=== PATIENT | male | born 1960 | race Caucasian/White ===

== ENCOUNTER → 2021-09-01 | Outpatient (CLI) | payer BC, SELFPAY ==
--- NOTE | 2021-09-01 11:26 | US_ITS ---
EXAM: US SOFT TISSUES HEAD AND NECK, THYROID CLINICAL INDICATION: THYROMEGALY TECHNIQUE: Greyscale and color doppler imaging was performed of the thyroid gland. This report was created using [employer] report generation technology. COMPARISON: None. FINDINGS: LEFT THYROID LOBE: The left lobe measures 5.2 x 1.9 x 2.1 cm and is diffusely heterogeneous. Left lobe nodule 1: In the midpole region of the left lobe of the thyroid there is a solid 5 x 4 x 2 mm nodule that is hypoechoic, taller than wide, smoothly marginated with no echogenic foci. TI-RADS points: 4. TI-RADS category: TR4. This nodule is moderately suspicious but no FNA or follow-up is necessary given the small size of this nodule. RIGHT THYROID LOBE: The right lobe measures 5.5 x 2.1 x 1.6 cm and is diffusely heterogeneous. Right lobe Nodule 1: In the lower pole of the right lobe of the thyroid there is a solid 4 x 4 x 3 mm nodule that is hypoechoic, taller than wide, smoothly marginated without echogenic foci. TI-RADS points: 7. TI-RADS category: TR5. This nodule is highly suspicious but no FNA or follow-up is necessary given the small size of this nodule. ISTHMUS: The isthmus measures 7 mm and is heterogeneous. No thyroid nodules are present. US/Thyroid IMPRESSION: Mildly enlarged diffusely heterogeneous thyroid. The nodules described above are both suspicious but because of their size do not require follow-up or fine needle aspiration. Electronically Signed: Geovany Coffey MD at 23:44 EDT ,
== END | disposition home or self-care (01) ==
PROVIDERS: PCP Family Medicine; Visit Provider Family Medicine
DX: E01.0 Iodine-deficiency related diffuse (endemic) goiter (principal)
CPT/HCPCS: 76536

== ENCOUNTER → 2021-09-27 | Outpatient (CLI) | payer BC, SELFPAY ==
[2021-09-27 15:49] LABS: Absolute Neutrophil Count 2.3 X10^3/uL (2.0-7.7); Basophil# 0.04 X10^3/uL; Eosinophil# 0.14 X10^3/uL; Eosinophils% 3.5 % (0-5); Hemoglobin 16.4 g/dL (13.0-16.5); Lymphocyte % 32.2 % (19-41); Mean Corp Hgb Conc 33.5 g/dL (32-36); Mean Corpuscular Hgb 30.2 pg (27.0-32.0); Mean Corpuscular Volume 90.2 fL (80-94); Mean Platelet Vol. 10.7 fl (6.2-12.0); Monocyte# 0.27 X10^3/uL; Monocyte% 6.7 % (0-10); NRBC Flagged by Analyzer 0 % (0-5); Neutrophil # 2.27 X10^3/uL (2.7-7.7); Neutrophil % 56.1 % (47-70); Platelet Count 195 K/mm3 (150-450); RBC Distribution Width CV 11.8 % (11.6-14.6); RBC Distribution Width SD 38.7 fl (35.1-43.9); Red Blood Count 5.43 M/mm3 (4.6-6.2)
[2021-09-27 15:57] LABS: Hemoglobin A1c 12.2 % (3.8-5.6)
[2021-09-27 16:07] LABS: AST(SGOT) 18 U/L (15-37); Alanine Aminotransfer ALT/SGPT 38 U/L (16-61); Albumin, Serum 3.7 g/dL (3.2-5.0); Alkaline Phosphatase 107 U/L (45-117); Anion Gap 5 (5-15); BUN 16 mg/dL (7-18); BUN/Creat Ratio 13.1 RATIO (10-20); Chloride 105 mmol/L (98-107); Cholesterol 176 mg/dL (200); Creatinine, Serum 1.22 mg/dL (0.70-1.30); EST Glomerular Filtration Rate 65 mL/min (>60); Est Glom Filt Rate - Afr Amer 78 mL/min (>60); Globulin 3.7 g/dL (2.2-4.2); Glucose 434 mg/dL (74-106); High Density Lipoprotein 55 mg/dL; PSA,Total - Annual Screen 2.53 ng/mL (0.00-4.00); Protein, Total 7.4 g/dL (6.4-8.2); Sodium Level 137 mmol/L (136-145); T4 Free Direct 0.74 ng/dL (0.76-1.46); Triglycerides 112 mg/dL; Very Low Density Lipoprotein 22 mg/dL (5-40)
[2021-10-08 11:26] LABS: Thyroid Stim Immunoglob <0.10 IU/L (0.00-0.55)
[2021-10-08 18:01] LABS: Thyroglobulin RIA 34 ng/mL (.); Thyroid Peroxidase AB 25 IU/mL (0-34)
== END | disposition home or self-care (01) ==
LOC: MFPLAB 13:50
PROVIDERS: PCP Family Medicine; Visit Provider Family Medicine
DX: E01.0 Iodine-deficiency related diffuse (endemic) goiter (principal); R73.9 Hyperglycemia, unspecified; Z12.5 Encounter for screening for malignant neoplasm of prostate
CPT/HCPCS: 36415; 80053; 80061; 83036; 84153; 84432; 84439; 84443; 84445; 85025; 86376; 86800; G0103

== ENCOUNTER 2021-11-16 05:49 | Day surgery (SDC) | payer BC, SELFPAY ==
[2021-11-16] VITALS (12 sets, daily range): BP systolic 92–155; BP diastolic 59–106; PULSE 66–86; RESP 14–16; TEMP 36.3–36.8; O2SAT 96–100; BMI 22.6
--- NOTE | 2021-11-16 05:57 | PCM.HP.STD ---
[facility] - General General Date of Service: 11/16/21 Chief Complaint: Screening for intestinal cancer [facility] Narrative CAMRON FIELD, is a 61 M who presents for screening colonoscopy today. He presents via open access. He has never had a previous colonoscopy. He denies abdominal pain. No bright red blood per rectum or melena. He states he is on no medications and enjoys good health. [facility] Medical History (Updated 11/14/21 @ 12:42 by Nilda Jones) Easy bruising History of edema Impaired fasting glucose Injury of back Leg cramps Non-smoker Thyroid disease Thyromegaly Home Medications aspirin 81 mg tablet,delayed release (Sergei Low Dose Aspirin) 81 mg PO DAILY 09/25/21 [History Last Taken 11/12/21] cinnamon bark 500 mg capsule (Cinnamon) 500 mg PO DAILY 09/25/21 [History Last Taken 11/12/21] cdtgrdgl-rwzpxvwy-evfmn acid 400 mcg-vit K 20 mcg-lycop 300 mcg tablet (Men's Multivitamin) 1 tab PO DAILY 09/25/21 [History Last Taken 11/12/21] Bio Complete 3 2 tab PO/SL DAILY 11/14/21 [History Last Taken Unknown] Allergy/AdvReac Type Severity Reaction Status Date / Time No Known Allergies Allergy Verified 11/14/21 12:33 Family History (Updated 09/25/21 @ 16:17 by Raquel Upton) Father Heart disease Diabetes Arthritis Grandfather Heart disease Hypertension Parkinsons Mother Diabetes Hypertension Arthritis Kidney disease Grandmother Heart disease Hypertension Sister Ulcerative colitis Surgical History (Updated 09/25/21 @ 16:13 by Raquel Upton) History of wisdom tooth extraction Social History Smoking Status: Never smoker ROS Constitutional Constitutional: Reports systems reviewed and no addt'l complaints, except as documented Cardiovascular Cardiovascular: Denies chest pain Respiratory/Chest Respiratory/Chest: Denies shortness of breath at rest Gastrointestinal Gastrointestinal: Denies abdominal pain, change in bowel habits, hematochezia or melena Physical Exam Const alert, oriented x3 and no apparent distress General Appearance: cooperative and comfortable Eyes General Eye: normal appearance of both eyes Neck General: normal visual inspection Chest inspection of chest normal Resp Effort and Inspection: able to speak in complete sentences and symmetric chest movement Auscultation: clear to auscultation bilaterally Cardio regular rate and regular rhythm GI soft to palpation, non-tender and non-distended Extremity no calf tenderness Neuro oriented x3 Psych thought process normal Assessment & Plan Assessment/Plan (1) Encounter for screening for malignant neoplasm of colon: PLAN: The patient presents via open access today. Plan to proceed with a colonoscopy with possible biopsy or polypectomy as indicated. He is aware of technique, benefit, risk, alternatives. We will proceed as noted. Bry Jerry M.D., F.A.C.S.
[2021-11-16] MEDS: Lactated Ringers 1,000 ML 15 ML IV (06:26)
[2021-11-16] MEDS: Midazolam 5 MG/ML Syringe (07:03)
--- NOTE | 2021-11-16 07:26 | OP.COLON_ITS ---
Patient Name: Ta Carrillo Procedure Date: 11/16/2021 6:58 AM Date of : 1960 Age: 61 Procedure: Colonoscopy Indications: Screening for colorectal malignant neoplasm Providers: Bry Jerry MD Referring MD: Constantine Diaz Medicines: Midazolam 3.5 mg IV, Meperidine 100 mg IV Patient Profile: Last Colonoscopy: none. The patient's first colonoscopy is today. Complications: No immediate complications. Procedure: Pre-Anesthesia Assessment: - Prior to the procedure, a History and Physical was performed, and patient medications and allergies were reviewed. The patient's tolerance of previous anesthesia was also reviewed. The risks and benefits of the procedure and the sedation options and risks were discussed with the patient. All questions were answered, and informed consent was obtained. Prior Anticoagulants: The patient has taken no previous anticoagulant or antiplatelet agents. ASA Grade Assessment: II - A patient with mild systemic disease. After reviewing the risks and benefits, the patient was deemed in satisfactory condition to undergo the procedure. After I obtained informed consent, the scope was passed under direct vision. Throughout the procedure, the patient's blood pressure, pulse, and oxygen saturations were monitored continuously. The pediatric colonoscope was introduced through the anus and advanced to the cecum, identified by appendiceal orifice and ileocecal valve. The colonoscopy was performed without difficulty. The patient tolerated the procedure well. The quality of the bowel preparation was good. The ileocecal valve and the appendiceal orifice were photographed. Moderate Sedation: Moderate (conscious) sedation was personally administered by the endoscopist. The following parameters were monitored: oxygen saturation, heart rate, blood pressure, and response to care. Total physician intraservice time was 15 minutes. Scope In: 7:09:06 AM Scope Withdrawal Time 0 hours 7 minutes 16 seconds Scope Out: 7:21:26 AM Total Procedure Duration Time 0 hours 12 minutes 20 seconds Findings: The digital rectal exam findings include enlarged prostate. The colon (entire examined portion) appeared normal. Impression: - Enlarged prostate found on digital rectal exam. - The entire examined colon is normal. - No specimens collected. Recommendation: - Discharge patient to home. - Resume previous diet. - Continue present medications. - Repeat colonoscopy in 10 years for screening purposes. Procedure Code(s): --- Professional --- 26297, Colonoscopy, flexible; diagnostic, including collection of specimen(s) by brushing or washing, when performed (separate procedure) 76837, 61, Moderate sedation services provided by the same physician or other qualified health care attendant performing the diagnostic or therapeutic service that the sedation supports, requiring the presence of an independent trained observer to assist in the monitoring of the patient's level of consciousness and physiological status; initial 15 minutes of intraservice time, patient age 5 years or older Diagnosis Code(s): --- Professional --- Z12.11, Encounter for screening for malignant neoplasm of colon N40.0, Benign prostatic hyperplasia without lower urinary tract symptoms CPT copyright 2017 [employer]. All rights reserved. The codes documented in this report are preliminary and upon middle school spanish teacher review may be revised to meet current compliance requirements. Bry Jerry MD 11/16/2021 7:25:42 AM This report has been signed electronically. Number of Addenda: 0 Note Initiated On: 11/16/2021 6:58 AM
--- NOTE | 2021-11-16 07:27 | OP.CCLET_ITS ---
11/16/2021 Constantine Diaz [address] [place] [address] Re : Colonoscopy procedure for Ta Carrillo Dear Dr. Diaz This procedure was performed on Tuesday, November 16, 2021. My impressions and recommendations are as follows: Impressions : - Enlarged prostate found on digital rectal exam. - The entire examined colon is normal. - No specimens collected. Recommendations : - Discharge patient to home. - Resume previous diet. - Continue present medications. - Repeat colonoscopy in 10 years for screening purposes. My findings are described in the full procedure note, which is enclosed. If I can be of further assistance, please feel free to contact me at Doctor phone number(s): Work: . Sincerely, Bry Jerry MD 11/16/2021 7:25:42 AM This report has been signed electronically.
== END 2021-11-16 08:28 | disposition home or self-care (01) ==
LOC: EN 05:49 → AC 05:50
PROVIDERS: PCP Family Medicine; Referring Provider Family Medicine; Visit Provider Surgery
PROC: 0DJD8ZZ Inspection of Lower Intestinal Tract, Via Natural or Artificial Opening Endoscopic (ICD-10-PCS; CPT 45378; principal; 2021-11-16 06:55)
DX: Z12.11 Encounter for screening for malignant neoplasm of colon (principal); N40.0 Benign prostatic hyperplasia without lower urinary tract symptoms; E07.9 Disorder of thyroid, unspecified; Z79.82 Long term (current) use of aspirin; Z79.899 Other long term (current) drug therapy
CPT/HCPCS: 45378; 99152; 99153; J7120

== ENCOUNTER → 2022-11-27 | Outpatient (CLI) | payer BC, SELFPAY ==
[2022-11-27 17:37] LABS: Absolute Lymphocyte Count 1.65 X10^3/uL (0.83-4.51); Absolute Neutrophil Count 2.7 X10^3/uL (2.0-7.7); Basophil# 0.06 X10^3/uL; Basophil% 1.2 % (0-1); Eosinophil# 0.18 X10^3/uL; Eosinophils% 3.6 % (0-5); Hematocrit 48.2 % (40-54); Hemoglobin 16.1 g/dL (13.0-16.5); Lymphocyte # 1.65 X10^3/ul (0.83-4.51); Lymphocyte % 33.3 % (19-41); Mean Corp Hgb Conc 33.4 g/dL (32-36); Mean Corpuscular Hgb 30.4 pg (27.0-32.0); Mean Corpuscular Volume 90.9 fL (80-94); Mean Platelet Vol. 10.9 fl (6.2-12.0); Monocyte# 0.37 X10^3/uL; Monocyte% 7.5 % (0-10); NRBC Flagged by Analyzer 0 % (0-5); Neutrophil # 2.67 X10^3/uL (2.7-7.7); Platelet Count 195 K/mm3 (150-450); RBC Distribution Width CV 11.6 % (11.6-14.6); RBC Distribution Width SD 38.8 fl (35.1-43.9)
[2022-11-27 18:15] LABS: Hemoglobin A1c 12.1 % (3.8-5.6)
[2022-11-27 18:23] LABS: AST(SGOT) 16 U/L (15-37); Alanine Aminotransfer ALT/SGPT 28 U/L (16-61); Albumin, Serum 3.8 g/dL (3.2-5.0); Alkaline Phosphatase 78 U/L (45-117); Anion Gap 5 (5-15); BUN 19 mg/dL (7-18); BUN/Creat Ratio 17.9 RATIO (10-20); Calcium,Total 8.8 mg/dL (8.5-10.1); Chloride 106 mmol/L (98-107); Cholesterol 149 mg/dL (200); Creatinine, Serum 1.06 mg/dL (0.70-1.30); EST Glomerular Filtration Rate 76 mL/min (>60); Est Glom Filt Rate - Afr Amer 92 mL/min (>60); Globulin 3.7 g/dL (2.2-4.2); Glucose 246 mg/dL (74-106); High Density Lipoprotein 58 mg/dL; Potassium 4.1 mmol/L (3.5-5.1); Protein, Total 7.5 g/dL (6.4-8.2); Sodium Level 138 mmol/L (136-145); T4 Free Direct 0.81 ng/dL (0.76-1.46); Triglycerides 72 mg/dL; Very Low Density Lipoprotein 14 mg/dL (5-40)
== END | disposition home or self-care (01) ==
LOC: MFPLAB 16:45
PROVIDERS: PCP Family Medicine; Visit Provider Family Medicine
DX: E06.3 Autoimmune thyroiditis (principal); E11.9 Type 2 diabetes mellitus without complications
CPT/HCPCS: 36415; 80053; 80061; 83036; 84439; 84443; 85025

== ENCOUNTER → 2023-02-18 | Outpatient (CLI) | payer BC, SELFPAY ==
[2023-02-18 17:49] LABS: Absolute Neutrophil Count 3.1 X10^3/uL (2.0-7.7); Basophil# 0.05 X10^3/uL; Eosinophils% 3.8 % (0-5); Hematocrit 51.3 % (40-54); Hemoglobin 16.7 g/dL (13.0-16.5); Lymphocyte % 28.7 % (19-41); Mean Corp Hgb Conc 32.6 g/dL (32-36); Mean Corpuscular Hgb 29.9 pg (27.0-32.0); Mean Corpuscular Volume 91.9 fL (80-94); Mean Platelet Vol. 10.4 fl (6.2-12.0); Monocyte% 7.7 % (0-10); NRBC Flagged by Analyzer 0 % (0-5); Neutrophil # 3.06 X10^3/uL (2.7-7.7); Neutrophil % 58.6 % (47-70); Platelet Count 216 K/mm3 (150-450); RBC Distribution Width CV 11.9 % (11.6-14.6); Red Blood Count 5.58 M/mm3 (4.6-6.2); White Blood Count 5.2 K/mm3 (4.4-11.0)
[2023-02-18 18:25] LABS: ALB/GLOB Ratio 0.9 RATIO (0.9-2.4); AST(SGOT) 14 U/L (15-37); Alanine Aminotransfer ALT/SGPT 35 U/L (16-61); Albumin, Serum 3.7 g/dL (3.2-5.0); Alkaline Phosphatase 68 U/L (45-117); Anion Gap 5 (5-15); BUN 14 mg/dL (7-18); BUN/Creat Ratio 16.9 RATIO (10-20); Calcium,Total 8.8 mg/dL (8.5-10.1); Chloride 108 mmol/L (98-107); Cholesterol 151 mg/dL (200); Creatinine, Serum 0.83 mg/dL (0.70-1.30); EST Glomerular Filtration Rate 100 mL/min (>60); Est Glom Filt Rate - Afr Amer 121 mL/min (>60); Glucose 120 mg/dL (74-106); High Density Lipoprotein 45 mg/dL; Potassium 3.9 mmol/L (3.5-5.1); Protein, Total 7.7 g/dL (6.4-8.2); Sodium Level 140 mmol/L (136-145); Triglycerides 210 mg/dL; Very Low Density Lipoprotein 42 mg/dL (5-40)
[2023-02-18 20:05] LABS: Hemoglobin A1c 9.9 % (3.8-5.6)
== END | disposition home or self-care (01) ==
LOC: MFPLAB 16:52
PROVIDERS: PCP Family Medicine; Visit Provider Family Medicine
DX: E11.9 Type 2 diabetes mellitus without complications (principal)
CPT/HCPCS: 36415; 80053; 80061; 83036; 85025

== ENCOUNTER → 2023-02-22 | Outpatient (CLI) | payer BC, SELFPAY ==
--- NOTE | 2023-02-22 09:30 | US_ITS ---
STUDY: THYROID ULTRASOUND REASON FOR EXAM: Male, 62 years old. Known nodule TECHNIQUE: Ultrasound evaluation of the thyroid was performed with real-time and static carpio-scale imaging. COMPARISON: 09/01/2021 FINDINGS: RIGHT LOBE: The right lobe of the thyroid gland measures 4.9 x 1.7 x 1.3 cm. There is a heterogeneous echotexture. There is a stable solid 0.4 x 0.3 x 0.4 cm nodule. This nodule is solid or almost completely solid, hypoechoic, nwtiz-eqzi-pyhl, smoothly marginated and contains no echogenic foci. TI-RADS points: 4. TI-RADS category: TR4. This nodule is moderately suspicious but no FNA or follow-up is necessary given the small size of this nodule. LEFT LOBE: The left lobe of the thyroid gland measures 4.5 x 1.6 x 1.7 cm. There is a heterogeneous echotexture. There is a stable solid 0.4 x 0.3 x 0.4 cm nodule This nodule is solid or almost completely solid, hypoechoic, bcxsb-zhvo-gfyf, smoothly marginated and contains no echogenic foci. TI-RADS points: 4. TI-RADS category: TR4. This nodule is moderately suspicious but no FNA or follow-up is necessary given the small size of this nodule. ISTHMUS: The isthmus measures 0.7 cm. The regional lymph nodes are normal. US/Thyroid IMPRESSION: Heterogeneous thyroid with bilateral stable solid 4 mm nodules. Categorization and follow-up as described above. Electronically Signed: Irving Hoffman MD at 12:18 EDT ,
== END | disposition home or self-care (01) ==
PROVIDERS: PCP Family Medicine; Referring Provider Family Medicine; Visit Provider Family Medicine
DX: E04.2 Nontoxic multinodular goiter (principal)
CPT/HCPCS: 76536

== ENCOUNTER → 2023-05-20 | Outpatient (CLI) | payer BC, SELFPAY ==
[2023-05-20 18:01] LABS: Absolute Lymphocyte Count 1.64 X10^3/uL (0.83-4.51); Absolute Neutrophil Count 3.1 X10^3/uL (2.0-7.7); Basophil# 0.07 X10^3/uL; Basophil% 1.3 % (0-1); Eosinophil# 0.33 X10^3/uL; Eosinophils% 5.9 % (0-5); Hematocrit 48.2 % (40-54); Hemoglobin 15.8 g/dL (13.0-16.5); Lymphocyte # 1.64 X10^3/ul (0.83-4.51); Lymphocyte % 29.4 % (19-41); Mean Corp Hgb Conc 32.8 g/dL (32-36); Mean Corpuscular Hgb 29.8 pg (27.0-32.0); Mean Corpuscular Volume 90.9 fL (80-94); Mean Platelet Vol. 9.7 fl (6.2-12.0); Monocyte# 0.46 X10^3/uL; Monocyte% 8.2 % (0-10); NRBC Flagged by Analyzer 0 % (0-5); Neutrophil # 3.07 X10^3/uL (2.7-7.7); Platelet Count 212 K/mm3 (150-450); RBC Distribution Width CV 11.8 % (11.6-14.6); RBC Distribution Width SD 39.5 fl (35.1-43.9); White Blood Count 5.6 K/mm3 (4.4-11.0)
[2023-05-20 18:18] LABS: ALB/GLOB Ratio 1.1 RATIO (0.9-2.4); AST(SGOT) 16 U/L (15-37); Alanine Aminotransfer ALT/SGPT 30 U/L (16-61); Albumin, Serum 3.9 g/dL (3.2-5.0); Alkaline Phosphatase 54 U/L (45-117); Anion Gap 5 (5-15); BUN 24 mg/dL (7-18); BUN/Creat Ratio 24.9 RATIO (10-20); Chloride 108 mmol/L (98-107); Cholesterol 113 mg/dL (200); Creatinine, Serum 0.96 mg/dL (0.70-1.30); EST Glomerular Filtration Rate 84 mL/min (>60); Est Glom Filt Rate - Afr Amer 102 mL/min (>60); Globulin 3.7 g/dL (2.2-4.2); Glucose 129 mg/dL (74-106); High Density Lipoprotein 53 mg/dL; Potassium 4.4 mmol/L (3.5-5.1); Protein, Total 7.6 g/dL (6.4-8.2); Sodium Level 137 mmol/L (136-145); T4 Free Direct 0.78 ng/dL (0.76-1.46); Triglycerides 85 mg/dL; Very Low Density Lipoprotein 17 mg/dL (5-40)
[2023-05-20 18:36] LABS: Hemoglobin A1c 6.3 % (3.8-5.6)
[2023-05-20 18:37] LABS: Microalbumin:Creatinine Ratio 10.2 mg/g CRE (<30 mg/g CRE)
== END | disposition home or self-care (01) ==
LOC: MTLAB 16:54
PROVIDERS: PCP Family Medicine; Referring Provider Family Medicine; Visit Provider Family Medicine
DX: E11.9 Type 2 diabetes mellitus without complications (principal); E06.3 Autoimmune thyroiditis
CPT/HCPCS: 36415; 80053; 80061; 82043; 82570; 83036; 84439; 84443; 85025

== ENCOUNTER → 2023-08-19 | Outpatient (CLI) | payer BC, SELFPAY ==
[2023-08-19 16:55] LABS: Bacteria 0 SEEN /hpf (None Seen); Mucous, Urine 0 SEEN /hpf (<or=2+); Red Blood Cells-Urine 0 SEEN /hpf (0-5); Squamous Epithelial Cells - UA 0 SEEN /hpf (0-5); White Blood Cells 0 SEEN /hpf (0-5)
[2023-08-19 17:33] LABS: Color, Urine Yellow (Yellow); Glucose, Dipstick 250 mg/dl (Normal); Ketone-Dipstick Negative (Negative); Leukocyte Esterase-Dipstick Negative /ul (Negative); Nitrite-Dipstick Negative (Negative); Occult Blood-Urine Negative /ul (Negative); Protein-Dipstick Negative (Negative); Specific Gravity, Urine 1.015 (1.002-1.030); Urine Bilirubin Dipstick Negative (Negative); Urine Clarity Clear (Clear); Urine Urobilinogen Normal (Normal); Urine pH 6.5 (5.0 - 8.0)
[2023-08-19 17:37] LABS: Absolute Lymphocyte Count 1.46 X10^3/uL (0.83-4.51); Absolute Neutrophil Count 3.1 X10^3/uL (2.0-7.7); Basophil# 0.07 X10^3/uL; Basophil% 1.3 % (0-1); Eosinophil# 0.32 X10^3/uL; Hematocrit 47.3 % (40-54); Hemoglobin 15.6 g/dL (13.0-16.5); Lymphocyte # 1.46 X10^3/ul (0.83-4.51); Lymphocyte % 27.2 % (19-41); Mean Corpuscular Hgb 29.9 pg (27.0-32.0); Mean Corpuscular Volume 90.6 fL (80-94); Mean Platelet Vol. 10.4 fl (6.2-12.0); Monocyte# 0.38 X10^3/uL; Monocyte% 7.1 % (0-10); NRBC Flagged by Analyzer 0 % (0-5); Neutrophil # 3.12 X10^3/uL (2.7-7.7); Platelet Count 212 K/mm3 (150-450); RBC Distribution Width CV 11.8 % (11.6-14.6); RBC Distribution Width SD 39.1 fl (35.1-43.9); Red Blood Count 5.22 M/mm3 (4.6-6.2); White Blood Count 5.4 K/mm3 (4.4-11.0)
[2023-08-19 19:00] LABS: Microalbumin,Random Urine 10.5 mg/L (NO RANGE EST.); Microalbumin:Creatinine Ratio 11.3 mg/g CRE (<30 mg/g CRE)
[2023-08-19 19:20] LABS: AST(SGOT) 17 U/L (15-37); Alanine Aminotransfer ALT/SGPT 31 U/L (16-61); Albumin, Serum 3.7 g/dL (3.2-5.0); Alkaline Phosphatase 66 U/L (45-117); Anion Gap 4 (5-15); BUN 22 mg/dL (7-18); BUN/Creat Ratio 22.7 RATIO (10-20); Calcium,Total 8.7 mg/dL (8.5-10.1); Chloride 112 mmol/L (98-107); Cholesterol 112 mg/dL (200); Creatinine, Serum 0.97 mg/dL (0.70-1.30); EST Glomerular Filtration Rate 84 mL/min (>60); Est Glom Filt Rate - Afr Amer 101 mL/min (>60); Globulin 3.6 g/dL (2.2-4.2); Glucose 138 mg/dL (74-106); High Density Lipoprotein 41 mg/dL; Potassium 4.2 mmol/L (3.5-5.1); Protein, Total 7.3 g/dL (6.4-8.2); Sodium Level 142 mmol/L (136-145); T4 Free Direct 1.15 ng/dL (0.76-1.46); Thyroid Stim Hormone (TSH) 8.27 uIU/mL (0.358-3.74); Triglycerides 269 mg/dL; Very Low Density Lipoprotein 54 mg/dL (5-40)
[2023-08-19 19:48] LABS: Hemoglobin A1c 6.1 % (3.8-5.6)
== END | disposition home or self-care (01) ==
LOC: MFPLAB 16:52
PROVIDERS: PCP Family Medicine; Visit Provider Family Medicine
DX: E11.8 Type 2 diabetes mellitus with unspecified complications (principal); E06.3 Autoimmune thyroiditis
CPT/HCPCS: 36415; 80053; 80061; 81001; 82043; 82570; 83036; 84439; 84443; 85025

== ENCOUNTER → 2023-12-16 | Outpatient (CLI) | payer BC, SELFPAY ==
[2023-12-16 17:37] LABS: Absolute Lymphocyte Count 1.64 X10^3/uL (0.83-4.51); Absolute Neutrophil Count 3.1 X10^3/uL (2.0-7.7); Basophil# 0.07 X10^3/uL; Basophil% 1.3 % (0-1); Eosinophil# 0.36 X10^3/uL; Eosinophils% 6.5 % (0-5); Hematocrit 45.6 % (40-54); Lymphocyte # 1.64 X10^3/ul (0.83-4.51); Lymphocyte % 29.4 % (19-41); Mean Corp Hgb Conc 32.9 g/dL (32-36); Mean Corpuscular Volume 91.2 fL (80-94); Mean Platelet Vol. 10.6 fl (6.2-12.0); Monocyte# 0.43 X10^3/uL; Monocyte% 7.7 % (0-10); NRBC Flagged by Analyzer 0 % (0-5); Neutrophil # 3.05 X10^3/uL (2.7-7.7); Neutrophil % 54.6 % (47-70); Platelet Count 205 K/mm3 (150-450); RBC Distribution Width CV 11.8 % (11.6-14.6); RBC Distribution Width SD 39.4 fl (35.1-43.9); White Blood Count 5.6 K/mm3 (4.4-11.0)
[2023-12-16 18:42] LABS: ALB/GLOB Ratio 1.1 RATIO (0.9-2.4); AST(SGOT) 19 U/L (15-37); Alanine Aminotransfer ALT/SGPT 31 U/L (16-61); Albumin, Serum 3.9 g/dL (3.2-5.0); Alkaline Phosphatase 66 U/L (45-117); Anion Gap 3 (5-15); BUN 21 mg/dL (7-18); BUN/Creat Ratio 23.1 RATIO (10-20); Calcium,Total 9.3 mg/dL (8.5-10.1); Chloride 107 mmol/L (98-107); Cholesterol 124 mg/dL (200); Creatinine, Serum 0.91 mg/dL (0.70-1.30); EST Glomerular Filtration Rate 90 mL/min (>60); Est Glom Filt Rate - Afr Amer 109 mL/min (>60); Globulin 3.5 g/dL (2.2-4.2); Glucose 143 mg/dL (74-106); High Density Lipoprotein 46 mg/dL; Potassium 4.2 mmol/L (3.5-5.1); Protein, Total 7.4 g/dL (6.4-8.2); Sodium Level 138 mmol/L (136-145); T4 Free Direct 1.03 ng/dL (0.76-1.46); Triglycerides 117 mg/dL; Very Low Density Lipoprotein 23 mg/dL (5-40)
[2023-12-16 19:54] LABS: Hemoglobin A1c 7.7 % (3.8-5.6)
== END | disposition home or self-care (01) ==
LOC: MFPLAB 16:27
PROVIDERS: PCP Family Medicine; Visit Provider Family Medicine
DX: E11.8 Type 2 diabetes mellitus with unspecified complications (principal); E06.3 Autoimmune thyroiditis
CPT/HCPCS: 36415; 80053; 80061; 83036; 84439; 84443; 85025

== ENCOUNTER → 2024-03-30 | Outpatient (CLI) | payer BC, SELFPAY ==
[2024-03-30 18:01] LABS: Absolute Lymphocyte Count 1.58 X10^3/uL (0.83-4.51); Absolute Neutrophil Count 2.8 X10^3/uL (2.0-7.7); Basophil# 0.05 X10^3/uL; Hematocrit 46.7 % (40-54); Hemoglobin 15.5 g/dL (13.0-16.5); Lymphocyte # 1.58 X10^3/ul (0.83-4.51); Lymphocyte % 31.4 % (19-41); Mean Corp Hgb Conc 33.2 g/dL (32-36); Mean Corpuscular Volume 90.5 fL (80-94); Mean Platelet Vol. 10.4 fl (6.2-12.0); Monocyte# 0.39 X10^3/uL; Monocyte% 7.8 % (0-10); NRBC Flagged by Analyzer 0 % (0-5); Neutrophil # 2.79 X10^3/uL (2.7-7.7); Neutrophil % 55.4 % (47-70); Platelet Count 197 K/mm3 (150-450); RBC Distribution Width CV 12.3 % (11.6-14.6); RBC Distribution Width SD 40.7 fl (35.1-43.9); Red Blood Count 5.16 M/mm3 (4.6-6.2)
[2024-03-30 18:11] LABS: Microalbumin,Random Urine 12.1 mg/L (NO RANGE EST.)
[2024-03-30 18:26] LABS: Hemoglobin A1c 7.4 % (3.8-5.6)
[2024-03-30 18:38] LABS: ALB/GLOB Ratio 1.1 RATIO (0.9-2.4); AST(SGOT) 17 U/L (15-37); Alanine Aminotransfer ALT/SGPT 30 U/L (16-61); Albumin, Serum 4.2 g/dL (3.2-5.0); Alkaline Phosphatase 57 U/L (45-117); Anion Gap 8 (5-15); BUN 29 mg/dL (7-18); BUN/Creat Ratio 24.6 RATIO (10-20); Calcium,Total 8.9 mg/dL (8.5-10.1); Chloride 104 mmol/L (98-107); Cholesterol 119 mg/dL (200); Creatinine, Serum 1.18 mg/dL (0.70-1.30); EST Glomerular Filtration Rate 67 mL/min (>60); Est Glom Filt Rate - Afr Amer 81 mL/min (>60); Globulin 3.8 g/dL (2.2-4.2); Glucose 139 mg/dL (74-106); High Density Lipoprotein 48 mg/dL; Potassium 4.2 mmol/L (3.5-5.1); Sodium Level 136 mmol/L (136-145); T4 Free Direct 1.25 ng/dL (0.76-1.46); Triglycerides 101 mg/dL; Very Low Density Lipoprotein 20 mg/dL (5-40)
== END | disposition home or self-care (01) ==
LOC: MFPLAB 16:43
PROVIDERS: PCP Family Medicine; Referring Provider Family Medicine; Visit Provider Family Medicine
DX: E06.3 Autoimmune thyroiditis (principal); E11.8 Type 2 diabetes mellitus with unspecified complications
CPT/HCPCS: 36415; 80053; 80061; 82043; 83036; 84439; 84443; 85025

== ENCOUNTER → 2024-09-29 | Outpatient (CLI) | payer BC, SELFPAY ==
[2024-09-29 18:03] LABS: Absolute Lymphocyte Count 1.48 X10^3/uL (0.83-4.51); Absolute Neutrophil Count 3.9 X10^3/uL (2.0-7.7); Basophil# 0.06 X10^3/uL; Basophil% 0.9 % (0-1); Eosinophil# 0.55 X10^3/uL; Eosinophils% 8.6 % (0-5); Hematocrit 49.8 % (40-54); Hemoglobin 16.4 g/dL (13.0-16.5); Lymphocyte # 1.48 X10^3/ul (0.83-4.51); Lymphocyte % 23.2 % (19-41); Mean Corp Hgb Conc 32.9 g/dL (32-36); Mean Corpuscular Hgb 29.7 pg (27.0-32.0); Mean Corpuscular Volume 90.1 fL (80-94); Mean Platelet Vol. 10.8 fl (6.2-12.0); Monocyte# 0.42 X10^3/uL; Monocyte% 6.6 % (0-10); NRBC Flagged by Analyzer 0 % (0-5); Neutrophil # 3.85 X10^3/uL (2.7-7.7); Neutrophil % 60.4 % (47-70); Platelet Count 207 K/mm3 (150-450); RBC Distribution Width CV 11.9 % (11.6-14.6); RBC Distribution Width SD 39.6 fl (35.1-43.9); Red Blood Count 5.53 M/mm3 (4.6-6.2); White Blood Count 6.4 K/mm3 (4.4-11.0)
[2024-09-29 18:39] LABS: ALB/GLOB Ratio 1.4 RATIO (0.9-2.4); AST(SGOT) 21 U/L (<=37); Alanine Aminotransfer ALT/SGPT 20 U/L (<=46); Albumin, Serum 4.3 g/dL (3.4-4.8); Alkaline Phosphatase 66 U/L (40-129); Anion Gap 13 (5-15); BUN 17 mg/dL (4-19); Calcium,Total 9.6 mg/dL (7.6-11.0); Carbon Dioxide 23.1 mmol/L (21.0-32.0); Chloride 102 mmol/L (98-108); Cholesterol 127 mg/dL (<=200); Creatinine, Serum 1.06 mg/dL (0.70-1.20); EST Glomerular Filtration Rate 79 (>60); Globulin 3.1 g/dL (2.2-4.2); Glucose 142 mg/dL (70-99); High Density Lipoprotein 45 mg/dL; Low Density Lipoprotein Calc. 63 mg/dL; PSA,Total - Annual Screen 3.71 ng/mL (0.02-4.00); Potassium 4.7 mmol/L (3.3-5.1); Protein, Total 7.4 g/dL (5.9-8.4); Sodium Level 138 mmol/L (133-145); Total Bilirubin 0.57 mg/dL (0.00-1.30); Triglycerides 93 mg/dL; Very Low Density Lipoprotein 19 mg/dL (5-40)
[2024-09-29 19:04] LABS: Hemoglobin A1c 8.7 % (<=5.6)
--- OUTSIDE RECORDS SUMMARY | 2024-09-29 21:48 | XMS RPT_ITS | CCD ---
Author Organization [facility] Care Team Providers Care Lift Driver Name Role Phone Dr. Constantine Diaz Primary Care Provider Raquel Upton Attending Provider Unavailable Dr. Constantine Diaz Referring Provider Dr. Bry Jerry Attending Provider Dr. Bry Jerry Other Provider [phone] Constantine Diaz Attending Unavailable Constantine Diaz Primary Care Unavailable Constantine Diaz Attending Unavailable Constantine Diaz Primary Care Unavailable Constantine Diaz Attending Unavailable Constantine Diaz Referring Unavailable Constantine Diaz Primary Care Unavailable Constantine Diaz Referring Unavailable Constantine Diaz Primary Care Unavailable Constantine Diaz Attending Unavailable Medications Current Medications Medication Drug Class(es) Dates Sig (Normalized) Sig (Original) aspirin 81 mg delayed release oral tablet (6 sources) Platelet Aggregation Inhibitor, Nonsteroidal Anti-inflammatory Drug Start: 09-25-2021 Aspirin (Sergei Low Dose Aspirin) 81 mg tablet,delayed release (/KEVIN) Active 81 MG PO DAILY September 25, 2021 12:00am cinnamon bark 500 mg oral capsule (6 sources) Start: 09-25-2021 take 1 capsule by mouth once daily Cinnamon Bark (Cinnamon) 500 mg capsule Active 500 MG PO DAILY September 25, 2021 12:00am Ktokgmwg-Svy-Rkiyz -Vit K-Lycop (Men's Multivitamin) 400-20-300 mcg tablet (6 sources) Start: 09-25-2021 take 1 tablet by mouth once daily Rwqkruwl-Lps-Keuv c-Vit K-Lycop (Men's Multivitamin) 400-20-300 mcg tablet Active 1 TABLET PO DAILY September 24, 2021 11:00pm Start: 09-25-2021 take 1 tablet by leo th once daily Voedkhth-Lwe-Cveoz-Vit K-Lycop (Men's Multivitamin) 400-20-300 mcg tablet Active 1 TABLET PO DAILY September 25, 2021 12:00am Completed/Discontinued Medications Medication Drug Class(es) Dates Sig (Normalized) Sig (Original) Bio Complete 3 (6 sources) Start: 11-14-2021 take 3 tablets by mouth once daily Bio Complete 3 Active 2 TABLET SL/PO DAILY November 13, 2021 11:00pm Start: 11-14-2021 take 3 tablets by mo uth once daily Bio Complete 3 Active 2 TABLET SL/PO DAILY November 14, 2021 12:00am Problems Problem Classification Problem Date Documented Da te Episodic/Chronic Diabetes mellitus with complications (1 source) Type 2 diabetes mellitus with unspecified complications; Translations: [Type 2 diabetes mellitus with unspecified complications] Onset: 01-06-2024 Chronic Diabetes mellitus without complication (1 source) Type 2 diabetes mellitus without complications; Translations: [Type 2 diabetes mellitus without complications] Onset: 05-23-2023 Chronic Other screening for suspected conditions (not mental disorders or infectious disease) (7 sources) Patient encounter status; Translations: [Encounter for screening for malignant neoplasm of colon] Episodic Thyroid disorders (1 source) Autoimmune thyroiditis; Translations: [Autoimmune thyroiditis] Onset: 04-29-2024 Chronic Results Test Name Value Interpretation Reference Range Facility CBC W/Diff, Automatedon 12-0 Absolute Lymph 1.58 X10 3/uL Normal 0.83-4.51 [facility] Comment on above: Order Comment: Order Date: 08/19/23 Order Info: 0184-1 - CBCD Performed By: #### L 501.9520, L100.0100, L500.4100, L501.9985, L500.4050, L506.0400, L502.0250 #### [facility] [address] [place], [place], [address] Absolute Neut 2.8 X10 3/uL Normal 2.0-7.7 [facility] Comment on above: Order Comment: Order Date: 08/19/23 Order Info: 0184-1 - CBCD Performed By: #### L 501.9520, L100.0100, L500.4100, L501.9985, L500.4050, L506.0400, L502.0250 #### [facility] [address] [place], [address] Basophils/100 WBC (Bld) 1.0 % Normal 0-1 [facility] Comment on above: Order Comment: Order Date: 08/19/23 Order Info: 0184- - CBCD Performed By: #### L 501.9520, L100.0100, L500.4100, L501.9985, L500.4050, L506.0400, L502.0250 #### [facility] [address], [address] Eosinophils/100 WBC (Bld) 4.0 % Normal 0-5 [facility] Comment on above: Order Comment: Order Date: 08/19/23 Order Info: 0184- - CBCD Performed By: #### L 501.9520, L100.0100, L500.4100, L501.9985, L500.4050, L506.0400, L502.0250 #### [facility] [address], [address] Erythrocyte distribution width (RBC) [Ratio] 12.3 % Normal 11.6-14.6 [facility] Comment on above: Order Comment: Order Date: 08/19/23 Order Info: 0184- - CBCD Performed By: #### L 501.9520, L100.0100, L500.4100, L501.9985, L500.4050, L506.0400, L502.0250 #### [facility] [address], [address] Hematocrit (Bld) [Volume fraction] 46.7 % Normal 40-54 [facility] Comment on above: Order Comment: Order Date: 08/19/23 Order Info: 0184-1 - CBCD Performed By: #### L 501.9520, L100.0100, L500.4100, L501.9985, L500.4050, L506.0400, L502.0250 #### [facility] [address] [place], [address] Hemoglobin (Bld) [Mass/Vol] 15.5 g/dL Normal 13.0-16.5 [facility] Comment on above: Order Comment: Order Date: 08/19/23 Order Info: 0184- - CBCD Performed By: #### L 501.9520, L100.0100, L500.4100, L501.9985, L500.4050, L506.0400, L502.0250 #### [facility] [address] [place], [address] IG% 0.400 Normal 0.0-0.9 [facility] Comment on above: Order Comment: Order Date: 08/19/23 Order Info: 0184- - CBCD Result Comment: IG% - Immature Granulocytes (promyelocytes, myelocytes and metamyelocytes) > 1% indicates that a LEFT SHIFT is Present. Performed By: #### L 501.9520, L100.0100, L500.4100, L501.9985, L500.4050, L506.0400, L502.0250 #### [facility] [address] [place], [address] Lymphocytes/100 WBC (Bld) 31.4 % Normal 19-41 [facility] Comment on above: Order Comment: Order Date: 08/19/23 Order Info: 0184-1 - CBCD Performed By: #### L 501.9520, L100.0100, L500.4100, L501.9985, L500.4050, L506.0400, L502.0250 #### [facility] [address] [place], [address] MCH (RBC) [Entitic mass] 30.0 pg Normal 27.0-32.0 [facility] Comment on above: Order Comment: Order Date: 08/19/23 Order Info: 0184-1 - CBCD Performed By: #### L 501.9520, L100.0100, L500.4100, L501.9985, L500.4050, L506.0400, L502.0250 #### [facility] [address] [place], [address] MCHC (RBC) [Mass/Vol] 33.2 g/dL Normal 32-36 [facility] Comment on above: Order Comment: Order Date: 08/19/23 Order Info: 0184-1 - CBCD Performed By: #### L 501.9520, L100.0100, L500.4100, L501.9985, L500.4050, L506.0400, L502.0250 #### [facility] [address] [place], [place], [phone] (012) MCV (RBC) [Entitic vol] 90.5 fL Normal 80-94 [facility] Comment on above: Order Comment: Order Date: 08/19/23 Order Info: 0184-1 - CBCD Performed By: #### L 501.9520, L100.0100, L500.4100, L501.9985, L500.4050, L506.0400, L502.0250 #### [facility] [address] [place], [place], [address] (505) Monocytes/100 WBC (Bld) 7.8 % Normal 0-10 [facility] Comment on above: Order Comment: Order Date: 08/19/23 Order Info: 0184-1 - CBCD Performed By: #### L 501.9520, L100.0100, L500.4100, L501.9985, L500.4050, L506.0400, L502.0250 #### [facility] [address] [place], [place], [address] (017) Neutrophils/100 WBC (Bld) 55.4 % Normal 47-70 [facility] Comment on above: Order Comment: Order Date: 08/19/23 Order Info: 0184-1 - CBCD Performed By: #### L 501.9520, L100.0100, L500.4100, L501.9985, L500.4050, L506.0400, L502.0250 #### [facility] [address] [place], [address] Nucleated RBC (Bld) [#/Vol] 0 10*3/uL Normal 0-5 [facility] Comment on above: Order Comment: Order Date: 08/19/23 Order Info: 0184-1 - CBCD Performed By: #### L 501.9520, L100.0100, L500.4100, L501.9985, L500.4050, L506.0400, L502.0250 #### [facility] [address] [place], [place], [phone] (116) Platelet mean volume (Bld) [Entitic vol] 10.4 fL Normal 6.2-12.0 [facility] Comment on above: Order Comment: Order Date: 08/19/23 Order Info: 0184-1 - CBCD Performed By: #### L 501.9520, L100.0100, L500.4100, L501.9985, L500.4050, L506.0400, L502.0250 #### [facility] [address] [place], [place], [phone] (861) Platelets (Bld) [#/Vol] 197 10*3/uL Normal 150-450 [facility] Comment on above: Order Comment: Order Date: 08/19/23 Order Info: 0184-1 - CBCD Performed By: #### L 501.9520, L100.0100, L500.4100, L501.9985, L500.4050, L506.0400, L502.0250 #### [facility] [address] [place], [place], [id number] RBC (Bld) [#/Vol] 5.16 10*6/uL Normal 4.6-6.2 [facility] Comment on above: Order Comment: Order Date: 08/19/23 Order Info: 0184-1 - CBCD Performed By: #### L 501.9520, L100.0100, L500.4100, L501.9985, L500.4050, L506.0400, L502.0250 #### [facility] [address] [place], [place], [id number] RDW SD 40.7 fl Normal 35.1-43.9 [facility] Comment on above: Order Comment: Order Date: 08/19/23 Order Info: 0184-1 - CBCD Performed By: #### L 501.9520, L100.0100, L500.4100, L501.9985, L500.4050, L506.0400, L502.0250 #### [facility] [address] [place], [place], [phone] WBC (Bld) [#/Vol] 5.0 10*3/uL Normal 4.4-11.0 [facility] Comment on above: Order Comment: Order Date: 08/19/23 Order Info: 0184-1 - CBCD Performed By: #### L 501.9520, L100.0100, L500.4100, L501.9985, L500.4050, L506.0400, L502.0250 #### [facility] [address] [place], [place], [phone] Comprehensive Metabolic Prof ilon 03-30-2024 Albumin [Mass/Vol] 4.2 g/dL Normal 3.2-5.0 [facility] Comment on above: Order Comment: Order Date: 08/19/23 Order Info: 0779-1 - MIACRE Performed By: #### L 501.9520, L100.0100, L500.4100, L501.9985, L500.4050, L506.0400, L502.0250 #### [facility] [address] [place], [place], [address] Albumin/Globulin [Mass ratio] 1.1 {ratio} Normal 0.9-2.4 [facility] Comment on above: Order Comment: Order Date: 08/19/23 Order Info: 0779-1 - MIACRE Performed By: #### L 501.9520, L100.0100, L500.4100, L501.9985, L500.4050, L506.0400, L502.0250 #### [facility] [address] [place], [place], [phone] ALK P 57 U/L Normal 45-117 [facility] Comment on above: Order Comment: Order Date: 08/19/23 Order Info: 0779-1 - MIACRE Performed By: #### L 501.9520, L100.0100, L500.4100, L501.9985, L500.4050, L506.0400, L502.0250 #### [facility] [address] [place], [place], [phone] ALT [Catalytic activity/Vol] 30 U/L Normal 16-61 [facility] Comment on above: Order Comment: Order Date: 08/19/23 Order Info: 0779-1 - MIACRE Performed By: #### L 501.9520, L100.0100, L500.4100, L501.9985, L500.4050, L506.0400, L502.0250 #### [facility] [address] [place], [address] AST [Catalytic activity/Vol] 17 U/L Normal 15-37 [facility] Comment on above: Order Comment: Order Date: 08/19/23 Order Info: 0779-1 - MIACRE Performed By: #### L 501.9520, L100.0100, L500.4100, L501.9985, L500.4050, L506.0400, L502.0250 #### [facility] [address] [place], [address] Bilirubin [Mass/Vol] 0.50 mg/dL Normal 0.20-1.00 [facility] Comment on above: Order Comment: Order Date: 08/19/23 Order Info: 0779-1 - MIACRE Result Comment: For patients on eltrombopag therapy, use of Dimension [place] TBIL is not recommended. Performed By: #### L 501.9520, L100.0100, L500.4100, L501.9985, L500.4050, L506.0400, L502.0250 #### [facility] [address] [place], [address] BUN/CRE 24.6 RATIO High 10-20 [facility] Comment on above: Order Comment: Order Date: 08/19/23 Order Info: 0779-1 - MIACRE Performed By: #### L 501.9520, L100.0100, L500.4100, L501.9985, L500.4050, L506.0400, L502.0250 #### [facility] [address] [place], [address] CA,Total 8.9 mg/dL Normal 8.5-10.1 [facility] Comment on above: Order Comment: Order Date: 08/19/23 Order Info: 0779-1 - MIACRE Performed By: #### L 501.9520, L100.0100, L500.4100, L501.9985, L500.4050, L506.0400, L502.0250 #### [facility] [address] [place], [address] Chloride [Moles/Vol] 104 mmol/L Normal 98-107 [facility] Comment on above: Order Comment: Order Date: 08/19/23 Order Info: 0779-1 - MIACRE Performed By: #### L 501.9520, L100.0100, L500.4100, L501.9985, L500.4050, L506.0400, L502.0250 #### [facility] [address] [place], [address] CO2 [Moles/Vol] 24.0 mmol/L Normal 21.0-32.0 [facility] Comment on above: Order Comment: Order Date: 08/19/23 Order Info: 0779-1 - MIACRE Performed By: #### L 501.9520, L100.0100, L500.4100, L501.9985, L500.4050, L506.0400, L502.0250 #### [facility] [address] [place], [address] Creatinine [Mass/Vol] 1.18 mg/dL Normal 0.70-1.30 [facility] Comment on above: Order Comment: Order Date: 08/19/23 Order Info: 0779-1 - MIACRE Result Comment: The validity of the calculated GFR GFRAA in patients over 70 years has not been determined. Clinical correlation is essential. Performed By: #### L 501.9520, L100.0100, L500.4100, L501.9985, L500.4050, L506.0400, L502.0250 #### [facility] [address] [place], [address] EST GFR - AA 81 mL/min Normal >60 [facility] Comment on above: Order Comment: Order Date: 08/19/23 Order Info: 0779-1 - MIACRE Result Comment: Afri can Surinamese GFR Calc Performed By: #### L 501.9520, L100.0100, L500.4100, L501.9985, L500.4050, L506.0400, L502.0250 #### [facility] [address] [place], [address] GAP 8 Normal 5-15 [facility] Comment on above: Order Comment: Order Date: 08/19/23 Order Info: 0779-1 - MIACRE Performed By: #### L 501.9520, L100.0100, L500.4100, L501.9985, L500.4050, L506.0400, L502.0250 #### [facility] [address] [place], [address] GFR/1.73 sq M.predicted among non-blacks MDRD (S/P/Bld) [Vol rate/Area] 67 mL/min/{1.73_m2} Normal >60 [facility] Comment on above: Order Comment: Order Date: 08/19/23 Order Info: 0779- - MIACRE Result Comment: Non- GFR Calc Performed By: #### L 501.9520, L100.0100, L500.4100, L501.9985, L500.4050, L506.0400, L502.0250 #### [facility] [address] [place], [place], [phone] (016) Globulin (S) [Mass/Vol] 3.8 g/dL Normal 2.2-4.2 [facility] Comment on above: Order Comment: Order Date: 08/19/23 Order Info: 0779- - MIACRE Performed By: #### L 501.9520, L100.0100, L500.4100, L501.9985, L500.4050, L506.0400, L502.0250 #### [facility] [address] [place], [address] Glucose [Mass/Vol] 139 mg/dL High 74-106 [facility] Comment on above: Order Comment: Order Date: 08/19/23 Order Info: 0779-1 - MIACRE Result Comment: Fast ing Glucose result greater than or equal to 126 mg/dL suggests DIABETES MELLITUS per A.D.A. criteria. Performed By: #### L 501.9520, L100.0100, L500.4100, L501.9985, L500.4050, L506.0400, L502.0250 #### [facility] [address] [place], [address] Potassium [Moles/Vol] 4.2 mmol/L Normal 3.5-5.1 [facility] Comment on above: Order Comment: Order Date: 08/19/23 Order Info: 0779-1 - MIACRE Performed By: #### L 501.9520, L100.0100, L500.4100, L501.9985, L500.4050, L506.0400, L502.0250 #### [facility] [address] [place], [address] Sodium [Moles/Vol] 136 mmol/L Normal 136-145 [facility] Comment on above: Order Comment: Order Date: 08/19/23 Order Info: 0779-1 - MIACRE Performed By: #### L 501.9520, L100.0100, L500.4100, L501.9985, L500.4050, L506.0400, L502.0250 #### [facility] [address] [place], [address] T PROT 8.0 g/dL Normal 6.4-8.2 [facility] Comment on above: Order Comment: Order Date: 08/19/23 Order Info: 0779-1 - MIACRE Performed By: #### L 501.9520, L100.0100, L500.4100, L501.9985, L500.4050, L506.0400, L502.0250 #### [facility] [address] [place], [address] Urea nitrogen [Mass/Vol] 29 mg/dL High 7-18 [facility] Comment on above: Order Comment: Order Date: 08/19/23 Order Info: 0779-1 - MIACRE Performed By: #### L 501.9520, L100.0100, L500.4100, L501.9985, L500.4050, L506.0400, L502.0250 #### [facility] [address] [place], [address] Hemoglobin A1con 03-30-2024 HbA1c (Bld) [Mass fraction] 7.4 % High 3.8-5.6 [facility] Comment on above: Order Comment: Order Date: 08/19/23 Order Info: 0779-1 - MIACRE Result Comment: Norm al < 5.7 % Prediabetic 5.7 - 6.4 % Diabetic >or= 6.5 % Please note range changes. Performed By: #### L 501.9520, L100.0100, L500.4100, L501.9985, L500.4050, L506.0400, L502.0250 #### [facility] [address] [place], [address] Lipid Profileon 03-30-2024 Cholesterol [Mass/Vol] 119 mg/dL Normal 200 [facility] Comment on above: Order Comment: Order Date: 08/19/23 Order Info: 0779-1 - MIACRE Result Comment: <200 mg/dL Desirable 200-240 mg/dL Borderline >240 mg/dL High Risk Performed By: #### L 501.9520, L100.0100, L500.4100, L501.9985, L500.4050, L506.0400, L502.0250 #### [facility] [address] [place], [place], [address] Cholesterol in HDL [Mass/Vol] 48 mg/dL Normal [facility] Comment on above: Order Comment: Order Date: 08/19/23 Order Info: 0779-1 - MIACRE Result Comment: The drugs N-Acetylcysteine and Metamizole may falsely depress this assay. Reference Range HDL <40 mg/dL Low HDL Cholesterol HDL >or= 60 mg/dL High HDL Cholesterol Performed By: #### L 501.9520, L100.0100, L500.4100, L501.9985, L500.4050, L506.0400, L502.0250 #### [facility] [address] [place], [address] Cholesterol in LDL [Mass/Vol] 51 mg/dL Normal 0-130 [facility] Comment on above: Order Comment: Order Date: 08/19/23 Order Info: 0779-1 - MIACRE Performed By: #### L 501.9520, L100.0100, L500.4100, L501.9985, L500.4050, L506.0400, L502.0250 #### [facility] [address] [place], [address] Cholesterol in VLDL [Mass/Vol] 20 mg/dL Normal 5-40 [facility] Comment on above: Order Comment: Order Date: 08/19/23 Order Info: 0779-1 - MIACRE Performed By: #### L 501.9520, L100.0100, L500.4100, L501.9985, L500.4050, L506.0400, L502.0250 #### [facility] [address] [place], [address] Triglyceride [Mass/Vol] 101 mg/dL Normal [facility] Comment on above: Order Comment: Order Date: 08/19/23 Order Info: 0779-1 - MIACRE Result Comment: The drugs N-Acetylcysteine and Metamizole may falsely depress this assay. Serum Triglycerides Reference Interval Normal <150 mg/dL Borderline high 150 - 199 mg/dL High 200 - 499 mg/dL Very High > or = 500 mg/dL Performed By: #### L 501.9520, L100.0100, L500.4100, L501.9985, L500.4050, L506.0400, L502.0250 #### [facility] [address], [address] Microalbumin,Random Urineon 03-30-2024 MICROALBUMIN,UR 12.1 mg/L Normal NO RANGE EST. [facility] Comment on above: Performed By: #### L 501.9520, L100.0100, L500.4100, L501.9985, L500.4050, L506.0400, L502.0250 #### [facility] [address] [place], [address] T4 Free Directon 03-30-2024 T4 FREE DIRECT 1.25 ng/dL Normal 0.76-1.46 [facility] Comment on above: Order Comment: Order Date: 08/19/23 Order Info: 0779-1 - MIACRE Performed By: #### L 501.9520, L100.0100, L500.4100, L501.9985, L500.4050, L506.0400, L502.0250 #### [facility] [address] [place], [address] Thyroid Stim Hormone (TSH)on 03-30-2024 TSH 11.300 uIU/mL High 0.358-3.74 0 [facility] Comment on above: Order Comment: Order Date: 08/19/23 Order Info: 0779-1 - MIACRE Performed By: #### L 501.9520, L100.0100, L500.4100, L501.9985, L500.4050, L506.0400, L502.0250 #### [facility] [address] [place], [address] CBC W/Diff, Automatedon 11-27 Absolute Lymph 1.64 X10 3/uL Normal 0.83-4.51 [facility] Comment on above: Order Comment: Order Date: 08/19/23 Order Info: 0184-1 - CBCD Performed By: #### L 501.9520, L100.0100, L500.4100, L501.9985, L500.4050, L506.0400, L502.0250 #### [facility] [address] [place], [address] Absolute Neut 3.1 X10 3/uL Normal 2.0-7.7 [facility] Comment on above: Order Comment: Order Date: 08/19/23 Order Info: 0184-1 - CBCD Performed By: #### L 501.9520, L100.0100, L500.4100, L501.9985, L500.4050, L506.0400, L502.0250 #### [facility] [address] [place], [address] Basophils/100 WBC (Bld) 1.3 % High 0-1 [facility] Comment on above: Order Comment: Order Date: 08/19/23 Order Info: 0184-1 - CBCD Performed By: #### L 501.9520, L100.0100, L500.4100, L501.9985, L500.4050, L506.0400, L502.0250 #### [facility] [address] [place], [address] Eosinophils/100 WBC (Bld) 6.5 % High 0-5 [facility] Comment on above: Order Comment: Order Date: 08/19/23 Order Info: 0184-1 - CBCD Performed By: #### L 501.9520, L100.0100, L500.4100, L501.9985, L500.4050, L506.0400, L502.0250 #### [facility] [address] [place], [address] Erythrocyte distribution width (RBC) [Ratio] 11.8 % Normal 11.6-14.6 [facility] Comment on above: Order Comment: Order Date: 08/19/23 Order Info: 0184-1 - CBCD Performed By: #### L 501.9520, L100.0100, L500.4100, L501.9985, L500.4050, L506.0400, L502.0250 #### [facility] [address] [place], [address] Hematocrit (Bld) [Volume fraction] 45.6 % Normal 40-54 [facility] Comment on above: Order Comment: Order Date: 08/19/23 Order Info: 0184-1 - CBCD Performed By: #### L 501.9520, L100.0100, L500.4100, L501.9985, L500.4050, L506.0400, L502.0250 #### [facility] [address] [place], [address] Hemoglobin (Bld) [Mass/Vol] 15.0 g/dL Normal 13.0-16.5 [facility] Comment on above: Order Comment: Order Date: 08/19/23 Order Info: [id number] - CBCD Performed By: #### L 501.9520, L100.0100, L500.4100, L501.9985, L500.4050, L506.0400, L502.0250 #### [facility] [address] [place], [address] IG% 0.500 Normal 0.0-0.9 [facility] Comment on above: Order Comment: Order Date: 08/19/23 Order Info: 0184- - CBCD Result Comment: IG% - Immature Granulocytes (promyelocytes, myelocytes and metamyelocytes) > 1% indicates that a LEFT SHIFT is Present. Performed By: #### L 501.9520, L100.0100, L500.4100, L501.9985, L500.4050, L506.0400, L502.0250 #### [facility] [address] [place], [address] Lymphocytes/100 WBC (Bld) 29.4 % Normal 19-41 [facility] Comment on above: Order Comment: Order Date: 08/19/23 Order Info: 0184- - CBCD Performed By: #### L 501.9520, L100.0100, L500.4100, L501.9985, L500.4050, L506.0400, L502.0250 #### [facility] [address] [place], [address] MCH (RBC) [Entitic mass] 30.0 pg Normal 27.0-32.0 [facility] Comment on above: Order Comment: Order Date: 08/19/23 Order Info: 0184-1 - CBCD Performed By: #### L 501.9520, L100.0100, L500.4100, L501.9985, L500.4050, L506.0400, L502.0250 #### [facility] [address] [place], [address] MCHC (RBC) [Mass/Vol] 32.9 g/dL Normal 32-36 [facility] Comment on above: Order Comment: Order Date: 08/19/23 Order Info: 0184-1 - CBCD Performed By: #### L 501.9520, L100.0100, L500.4100, L501.9985, L500.4050, L506.0400, L502.0250 #### [facility] [address] [place], [place], [address] MCV (RBC) [Entitic vol] 91.2 fL Normal 80-94 [facility] Comment on above: Order Comment: Order Date: 08/19/23 Order Info: 0184-1 - CBCD Performed By: #### L 501.9520, L100.0100, L500.4100, L501.9985, L500.4050, L506.0400, L502.0250 #### [facility] [address] [place], [address] Monocytes/100 WBC (Bld) 7.7 % Normal 0-10 [facility] Comment on above: Order Comment: Order Date: 08/19/23 Order Info: 0184-1 - CBCD Performed By: #### L 501.9520, L100.0100, L500.4100, L501.9985, L500.4050, L506.0400, L502.0250 #### [facility] [address] [place], [address] Neutrophils/100 WBC (Bld) 54.6 % Normal 47-70 [facility] Comment on above: Order Comment: Order Date: 08/19/23 Order Info: 0184-1 - CBCD Performed By: #### L 501.9520, L100.0100, L500.4100, L501.9985, L500.4050, L506.0400, L502.0250 #### [facility] [address] [place], [address] Nucleated RBC (Bld) [#/Vol] 0 10*3/uL Normal 0-5 [facility] Comment on above: Order Comment: Order Date: 08/19/23 Order Info: 0184-1 - CBCD Performed By: #### L 501.9520, L100.0100, L500.4100, L501.9985, L500.4050, L506.0400, L502.0250 #### [facility] [address] [place], [address] Platelet mean volume (Bld) [Entitic vol] 10.6 fL Normal 6.2-12.0 [facility] Comment on above: Order Comment: Order Date: 08/19/23 Order Info: 0184-1 - CBCD Performed By: #### L 501.9520, L100.0100, L500.4100, L501.9985, L500.4050, L506.0400, L502.0250 #### [facility] [address] [place], [address] Platelets (Bld) [#/Vol] 205 10*3/uL Normal 150-450 [facility] Comment on above: Order Comment: Order Date: 08/19/23 Order Info: 0184-1 - CBCD Performed By: #### L 501.9520, L100.0100, L500.4100, L501.9985, L500.4050, L506.0400, L502.0250 #### [facility] [address] [place], [place], [id number] RBC (Bld) [#/Vol] 5.00 10*6/uL Normal 4.6-6.2 [facility] Comment on above: Order Comment: Order Date: 08/19/23 Order Info: 0184-1 - CBCD Performed By: #### L 501.9520, L100.0100, L500.4100, L501.9985, L500.4050, L506.0400, L502.0250 #### [facility] [address] [place], [place], [id number] RDW SD 39.4 fl Normal 35.1-43.9 [facility] Comment on above: Order Comment: Order Date: 08/19/23 Order Info: 0184-1 - CBCD Performed By: #### L 501.9520, L100.0100, L500.4100, L501.9985, L500.4050, L506.0400, L502.0250 #### [facility] [address] [place], [place], [phone] WBC (Bld) [#/Vol] 5.6 10*3/uL Normal 4.4-11.0 [facility] Comment on above: Order Comment: Order Date: 08/19/23 Order Info: 0184-1 - CBCD Performed By: #### L 501.9520, L100.0100, L500.4100, L501.9985, L500.4050, L506.0400, L502.0250 #### [facility] [address] [place], [place], [id number] Comprehensive Metabolic Prof [facility] 12-16-2023 Albumin [Mass/Vol] 3.9 g/dL Normal 3.2-5.0 [facility] Comment on above: Order Comment: Order Date: 08/19/23 Order Info: 0184-1 - CBCD Performed By: #### L 501.9520, L100.0100, L500.4100, L501.9985, L500.4050, L506.0400, L502.0250 #### [facility] [address] [place], [address] Albumin/Globulin [Mass ratio] 1.1 {ratio} Normal 0.9-2.4 [facility] Comment on above: Order Comment: Order Date: 08/19/23 Order Info: 0184-1 - CBCD Performed By: #### L 501.9520, L100.0100, L500.4100, L501.9985, L500.4050, L506.0400, L502.0250 #### [facility] [address] [place], [address] ALK P 66 U/L Normal 45-117 [facility] Comment on above: Order Comment: Order Date: 08/19/23 Order Info: 0184-1 - CBCD Performed By: #### L 501.9520, L100.0100, L500.4100, L501.9985, L500.4050, L506.0400, L502.0250 #### [facility] [address] [place], [address] ALT [Catalytic activity/Vol] 31 U/L Normal 16-61 [facility] Comment on above: Order Comment: Order Date: 08/19/23 Order Info: 0184-1 - CBCD Performed By: #### L 501.9520, L100.0100, L500.4100, L501.9985, L500.4050, L506.0400, L502.0250 #### [facility] [address] [place] [place], [address] AST [Catalytic activity/Vol] 19 U/L Normal 15-37 [facility] Comment on above: Order Comment: Order Date: 08/19/23 Order Info: 0184-1 - CBCD Performed By: #### L 501.9520, L100.0100, L500.4100, L501.9985, L500.4050, L506.0400, L502.0250 #### [facility] [address] [place], [address] Bilirubin [Mass/Vol] 0.40 mg/dL Normal 0.20-1.00 [facility] Comment on above: Order Comment: Order Date: 08/19/23 Order Info: 0184-1 - CBCD Result Comment: For patients on eltrombopag therapy, use of Dimension [place] TBIL is not recommended. Performed By: #### L 501.9520, L100.0100, L500.4100, L501.9985, L500.4050, L506.0400, L502.0250 #### [facility] [address] [place], [address] BUN/CRE 23.1 RATIO High 10-20 [facility] Comment on above: Order Comment: Order Date: 08/19/23 Order Info: 0184-1 - CBCD Performed By: #### L 501.9520, L100.0100, L500.4100, L501.9985, L500.4050, L506.0400, L502.0250 #### [facility] [address] [place], [address] CA,Total 9.3 mg/dL Normal 8.5-10.1 [facility] Comment on above: Order Comment: Order Date: 08/19/23 Order Info: 0184-1 - CBCD Performed By: #### L 501.9520, L100.0100, L500.4100, L501.9985, L500.4050, L506.0400, L502.0250 #### [facility] [address] [place], [address] Chloride [Moles/Vol] 107 mmol/L Normal 98-107 [facility] Comment on above: Order Comment: Order Date: 08/19/23 Order Info: 0184-1 - CBCD Performed By: #### L 501.9520, L100.0100, L500.4100, L501.9985, L500.4050, L506.0400, L502.0250 #### [facility] [address] [place], [address] CO2 [Moles/Vol] 28.0 mmol/L Normal 21.0-32.0 [facility] Comment on above: Order Comment: Order Date: 08/19/23 Order Info: 0184-1 - CBCD Performed By: #### L 501.9520, L100.0100, L500.4100, L501.9985, L500.4050, L506.0400, L502.0250 #### [facility] [address] [place], [address] Creatinine [Mass/Vol] 0.91 mg/dL Normal 0.70-1.30 [facility] Comment on above: Order Comment: Order Date: 08/19/23 Order Info: 0184 - CBCD Result Comment: The validity of the calculated GFR GFRAA in patients over 70 years has not been determined. Clinical correlation is essential. Performed By: #### L 501.9520, L100.0100, L500.4100, L501.9985, L500.4050, L506.0400, L502.0250 #### [facility] [address] [place], [address] EST GFR - AA 109 mL/min Normal >60 [facility] Comment on above: Order Comment: Order Date: 08/19/23 Order Info: 0184-1 - CBCD Result Comment: Afri can Surinamese GFR Calc Performed By: #### L 501.9520, L100.0100, L500.4100, L501.9985, L500.4050, L506.0400, L502.0250 #### [facility] [address] [place], [address] GAP 3 Low 5-15 [facility] Comment on above: Order Comment: Order Date: 08/19/23 Order Info: 0184-1 - CBCD Performed By: #### L 501.9520, L100.0100, L500.4100, L501.9985, L500.4050, L506.0400, L502.0250 #### [facility] [address] [place], [address] GFR/1.73 sq M.predicted among non-blacks MDRD (S/P/Bld) [Vol rate/Area] 90 mL/min/{1.73_m2} Normal >60 [facility] Comment on above: Order Comment: Order Date: 08/19/23 Order Info: 0184- - CBCD Result Comment: Non- GFR Calc Performed By: #### L 501.9520, L100.0100, L500.4100, L501.9985, L500.4050, L506.0400, L502.0250 #### [facility] [address] [place], [address] Globulin (S) [Mass/Vol] 3.5 g/dL Normal 2.2-4.2 [facility] Comment on above: Order Comment: Order Date: 08/19/23 Order Info: 0184-1 - CBCD Performed By: #### L 501.9520, L100.0100, L500.4100, L501.9985, L500.4050, L506.0400, L502.0250 #### [facility] [address] [place], [address] Glucose [Mass/Vol] 143 mg/dL High 74-106 [facility] Comment on above: Order Comment: Order Date: 08/19/23 Order Info: 0184-1 - CBCD Result Comment: Fast ing Glucose result greater than or equal to 126 mg/dL suggests DIABETES MELLITUS per A.D.A. criteria. Performed By: #### L 501.9520, L100.0100, L500.4100, L501.9985, L500.4050, L506.0400, L502.0250 #### [facility] [address] [place], [address] Potassium [Moles/Vol] 4.2 mmol/L Normal 3.5-5.1 [facility] Comment on above: Order Comment: Order Date: 08/19/23 Order Info: 0184-1 - CBCD Performed By: #### L 501.9520, L100.0100, L500.4100, L501.9985, L500.4050, L506.0400, L502.0250 #### [facility] [address] [place], [address] Sodium [Moles/Vol] 138 mmol/L Normal 136-145 [facility] Comment on above: Order Comment: Order Date: 08/19/23 Order Info: 0184-1 - CBCD Performed By: #### L 501.9520, L100.0100, L500.4100, L501.9985, L500.4050, L506.0400, L502.0250 #### [facility] [address] [place], [address] T PROT 7.4 g/dL Normal 6.4-8.2 [facility] Comment on above: Order Comment: Order Date: 08/19/23 Order Info: 0184-1 - CBCD Performed By: #### L 501.9520, L100.0100, L500.4100, L501.9985, L500.4050, L506.0400, L502.0250 #### [facility] [address] [place], [address] Urea nitrogen [Mass/Vol] 21 mg/dL High 7-18 [facility] Comment on above: Order Comment: Order Date: 08/19/23 Order Info: 0184-1 - CBCD Performed By: #### L 501.9520, L100.0100, L500.4100, L501.9985, L500.4050, L506.0400, L502.0250 #### [facility] [address] [place], [place], [id number] Hemoglobin A1con 12-16-2023 HbA1c (Bld) [Mass fraction] 7.7 % High 3.8-5.6 [facility] Comment on above: Order Comment: Order Date: 08/19/23 Order Info: 018-1 - CBCD Result Comment: Norm al < 5.7 % Prediabetic 5.7 - 6.4 % Diabetic >or= 6.5 % Please note range changes. Performed By: #### L 501.9520, L100.0100, L500.4100, L501.9985, L500.4050, L506.0400, L502.0250 #### [facility] [address] [place], [place], [phone] Lipid Profileon 12-16-2023 Cholesterol [Mass/Vol] 124 mg/dL Normal 200 [facility] Comment on above: Order Comment: Order Date: 08/19/23 Order Info: 018- - CBCD Result Comment: <200 mg/dL Desirable 200-240 mg/dL Borderline >240 mg/dL High Risk Performed By: #### L 501.9520, L100.0100, L500.4100, L501.9985, L500.4050, L506.0400, L502.0250 #### [facility] [address] [place], [place], [address] Cholesterol in HDL [Mass/Vol] 46 mg/dL Normal [facility] Comment on above: Order Comment: Order Date: 08/19/23 Order Info: 018-1 - CBCD Result Comment: The drugs N-Acetylcysteine and Metamizole may falsely depress this assay. Reference Range HDL <40 mg/dL Low HDL Cholesterol HDL >or= 60 mg/dL High HDL Cholesterol Performed By: #### L 501.9520, L100.0100, L500.4100, L501.9985, L500.4050, L506.0400, L502.0250 #### [facility] [address] [place], [address] Cholesterol in LDL [Mass/Vol] 55 mg/dL Normal 0-130 [facility] Comment on above: Order Comment: Order Date: 08/19/23 Order Info: 0184-1 - CBCD Performed By: #### L 501.9520, L100.0100, L500.4100, L501.9985, L500.4050, L506.0400, L502.0250 #### [facility] [address] [place], [address] Cholesterol in VLDL [Mass/Vol] 23 mg/dL Normal 5-40 [facility] Comment on above: Order Comment: Order Date: 08/19/23 Order Info: 0184-1 - CBCD Performed By: #### L 501.9520, L100.0100, L500.4100, L501.9985, L500.4050, L506.0400, L502.0250 #### [facility] [address] [place], [address] Triglyceride [Mass/Vol] 117 mg/dL Normal [facility] Comment on above: Order Comment: Order Date: 08/19/23 Order Info: 0184-1 - CBCD Result Comment: The drugs N-Acetylcysteine and Metamizole may falsely depress this assay. Serum Triglycerides Reference Interval Normal <150 mg/dL Borderline high 150 - 199 mg/dL High 200 - 499 mg/dL Very High > or = 500 mg/dL Performed By: #### L 501.9520, L100.0100, L500.4100, L501.9985, L500.4050, L506.0400, L502.0250 #### [facility] [address] [place], [address] T4 Free Directon 12-16-2023 T4 FREE DIRECT 1.03 ng/dL Normal 0.76-1.46 [facility] Comment on above: Order Comment: Order Date: 08/19/23 Order Info: 0184-1 - CBCD Performed By: #### L 501.9520, L100.0100, L500.4100, L501.9985, L500.4050, L506.0400, L502.0250 #### [facility] [address] [place], [place], [address] Thyroid Stim Hormone (TSH)on 12-16-2023 TSH 13.700 uIU/mL High 0.358-3.74 0 [facility] Comment on above: Order Comment: Order Date: 08/19/23 Order Info: 0184-1 - CBCD Performed By: #### L 501.9520, L100.0100, L500.4100, L501.9985, L500.4050, L506.0400, L502.0250 #### [facility] [address] [place], [place], [phone] Absolute lymphocyte countOrd ered By: Constantine Diaz on 08-19-2023 Lymphocytes Auto (Unsp spec) [#/Vol] 1.46 10*3/uL 0.83-4.51 [facility] Automated lymphocyte count a s percentage of total leukocytesOrdered By: Constantine Diaz on 08-19-2023 Lymphocytes/100 WBC Auto (Unsp spec) 27.2 % 19-41 [facility] Basophil percentageOrdered B y: Constantine Diaz on 08-19-2023 Basophil percentage 0 SEEN /hpf 0-5 [facility] Basophils/100 WBC (Bld) 1.3 % 0-1 [facility] Bilirubin [Mass/Vol] 0.40 mg/dL 0.20-1.00 [facility] Comment on above: For patients on eltr ombopag therapy, use of Dimension [place] TBIL is not recommended. Chloride [Moles/Vol] 112 mmol/L 98-107 [facility] Cholesterol [Mass/Vol] 112 mg/dL <200 [facility] Comment on above: <200 mg/dL Desirable 200-240 mg/dL Borderline >240 mg/dL High Risk Eosinophils/100 WBC (Bld) 6.0 % 0-5 [facility] Glucose [Mass/Vol] 138 mg/dL 74-106 [facility] Comment on above: Fasting Glucose resu lt greater than or equal to 126 mg/dL suggests DIABETES MELLITUS per A.D.A. criteria. Hemoglobin (Bld) [Mass/Vol] 15.6 g/dL 13.0-16.5 [facility] Monocytes/100 WBC (Bld) 7.1 % 0-10 [facility] Neutrophils (Bld) [#/Vol] 3.1 10*3/uL 2.0-7.7 [facility] Neutrophils/100 WBC (Bld) 58.0 % 47-70 [facility] Potassium [Moles/Vol] 4.2 mmol/L 3.5-5.1 [facility] Protein [Mass/Vol] 7.3 g/dL 6.4-8.2 [facility] Sodium [Moles/Vol] 142 mmol/L 136-145 [facility] Triglyceride [Mass/Vol] 269 mg/dL <199 [facility] Comment on above: The drugs N-Acetylcy steine and Metamizole may falsely depress this assay.Serum Triglycerides Reference Interval Normal <150 mg/dL Borderline high 150 - 199 mg/dL High 200 - 499 mg/dL Very High > or = 500 mg/dL WBC (Bld) [#/Vol] 5.4 10*3/uL 4.4-11.0 [facility] Bilirubin Test strip Ql (U)O rdered By: Constantine Diaz on 08-19-2023 Bilirubin Ql (U) Negative Negative [facility] CBC W/Diff, Automatedon 07-28 Absolute Lymph 1.46 X10 3/uL Normal 0.83-4.51 [facility] Comment on above: Order Comment: Order Date: 08/19/23 Order Info: 0184-1 - CBCD Performed By: #### L 501.9520, L100.0100, L500.4100, L501.9985, L500.4050, L506.0400, L502.0250 #### [facility] [address] [place], [place], [phone] Absolute Neut 3.1 X10 3/uL Normal 2.0-7.7 [facility] Comment on above: Order Comment: Order Date: 08/19/23 Order Info: 0184-1 - CBCD Performed By: #### L 501.9520, L100.0100, L500.4100, L501.9985, L500.4050, L506.0400, L502.0250 #### [facility] [address] [place], [address] Basophils/100 WBC (Bld) 1.3 % High 0-1 [facility] Comment on above: Order Comment: Order Date: 08/19/23 Order Info: 0184-1 - CBCD Performed By: #### L 501.9520, L100.0100, L500.4100, L501.9985, L500.4050, L506.0400, L502.0250 #### [facility] [address] [place], [place], [phone] ([phone]) Eosinophils/100 WBC (Bld) 6.0 % High 0-5 [facility] Comment on above: Order Comment: Order Date: 08/19/23 Order Info: 0184-1 - CBCD Performed By: #### L 501.9520, L100.0100, L500.4100, L501.9985, L500.4050, L506.0400, L502.0250 #### [facility] [address] [place], [place], [phone] Erythrocyte distribution width (RBC) [Ratio] 11.8 % Normal 11.6-14.6 [facility] Comment on above: Order Comment: Order Date: 08/19/23 Order Info: 0184-1 - CBCD Performed By: #### L 501.9520, L100.0100, L500.4100, L501.9985, L500.4050, L506.0400, L502.0250 #### [facility] [address] [place], [place], [phone] Hematocrit (Bld) [Volume fraction] 47.3 % Normal 40-54 [facility] Comment on above: Order Comment: Order Date: 08/19/23 Order Info: 0184-1 - CBCD Performed By: #### L 501.9520, L100.0100, L500.4100, L501.9985, L500.4050, L506.0400, L502.0250 #### [facility] [address] [place], [address] Hemoglobin (Bld) [Mass/Vol] 15.6 g/dL Normal 13.0-16.5 [facility] Comment on above: Order Comment: Order Date: 08/19/23 Order Info: 0184-1 - CBCD Performed By: #### L 501.9520, L100.0100, L500.4100, L501.9985, L500.4050, L506.0400, L502.0250 #### [facility] [address] [place], [address] IG% 0.400 Normal 0.0-0.9 [facility] Comment on above: Order Comment: Order Date: 08/19/23 Order Info: 0184-1 - CBCD Result Comment: IG% - Immature Granulocytes (promyelocytes, myelocytes and metamyelocytes) > 1% indicates that a LEFT SHIFT is Present. Performed By: #### L 501.9520, L100.0100, L500.4100, L501.9985, L500.4050, L506.0400, L502.0250 #### [facility] [address] [place], [address] Lymphocytes/100 WBC (Bld) 27.2 % Normal 19-41 [facility] Comment on above: Order Comment: Order Date: 08/19/23 Order Info: 0184-1 - CBCD Performed By: #### L 501.9520, L100.0100, L500.4100, L501.9985, L500.4050, L506.0400, L502.0250 #### [facility] [address] [place], [address] MCH (RBC) [Entitic mass] 29.9 pg Normal 27.0-32.0 [facility] Comment on above: Order Comment: Order Date: 08/19/23 Order Info: 01807-27 - CBCD Performed By: #### L 501.9520, L100.0100, L500.4100, L501.9985, L500.4050, L506.0400, L502.0250 #### [facility] [address] [place], [address] MCHC (RBC) [Mass/Vol] 33.0 g/dL Normal 32-36 [facility] Comment on above: Order Comment: Order Date: 08/19/23 Order Info: 01807-27 - CBCD Performed By: #### L 501.9520, L100.0100, L500.4100, L501.9985, L500.4050, L506.0400, L502.0250 #### [facility] [address] [place], [address] MCV (RBC) [Entitic vol] 90.6 fL Normal 80-94 [facility] Comment on above: Order Comment: Order Date: 08/19/23 Order Info: 01807-27 - CBCD Performed By: #### L 501.9520, L100.0100, L500.4100, L501.9985, L500.4050, L506.0400, L502.0250 #### [facility] [address] [place], [address] Monocytes/100 WBC (Bld) 7.1 % Normal 0-10 [facility] Comment on above: Order Comment: Order Date: 08/19/23 Order Info: 01807-27 - CBCD Performed By: #### L 501.9520, L100.0100, L500.4100, L501.9985, L500.4050, L506.0400, L502.0250 #### [facility] [address] [place], [address] Neutrophils/100 WBC (Bld) 58.0 % Normal 47-70 [facility] Comment on above: Order Comment: Order Date: 08/19/23 Order Info: 0184- - CBCD Performed By: #### L 501.9520, L100.0100, L500.4100, L501.9985, L500.4050, L506.0400, L502.0250 #### [facility] [address] [place], [address] Nucleated RBC (Bld) [#/Vol] 0 10*3/uL Normal 0-5 [facility] Comment on above: Order Comment: Order Date: 08/19/23 Order Info: 01807-27 - CBCD Performed By: #### L 501.9520, L100.0100, L500.4100, L501.9985, L500.4050, L506.0400, L502.0250 #### [facility] [address] [place], [address] Platelet mean volume (Bld) [Entitic vol] 10.4 fL Normal 6.2-12.0 [facility] Comment on above: Order Comment: Order Date: 08/19/23 Order Info: 0184- - CBCD Performed By: #### L 501.9520, L100.0100, L500.4100, L501.9985, L500.4050, L506.0400, L502.0250 #### [facility] [address] [place], [address] Platelets (Bld) [#/Vol] 212 10*3/uL Normal 150-450 [facility] Comment on above: Order Comment: Order Date: 08/19/23 Order Info: 0184- - CBCD Performed By: #### L 501.9520, L100.0100, L500.4100, L501.9985, L500.4050, L506.0400, L502.0250 #### [facility] [address] [place], [place], [phone] RBC (Bld) [#/Vol] 5.22 10*6/uL Normal 4.6-6.2 [facility] Comment on above: Order Comment: Order Date: 08/19/23 Order Info: 0184-1 - CBCD Performed By: #### L 501.9520, L100.0100, L500.4100, L501.9985, L500.4050, L506.0400, L502.0250 #### [facility] [address] [place], [place], [id number] RDW SD 39.1 fl Normal 35.1-43.9 [facility] Comment on above: Order Comment: Order Date: 08/19/23 Order Info: 0184-1 - CBCD Performed By: #### L 501.9520, L100.0100, L500.4100, L501.9985, L500.4050, L506.0400, L502.0250 #### [facility] [address] [place], [place], [id number] WBC (Bld) [#/Vol] 5.4 10*3/uL Normal 4.4-11.0 [facility] Comment on above: Order Comment: Order Date: 08/19/23 Order Info: 0184-1 - CBCD Performed By: #### L 501.9520, L100.0100, L500.4100, L501.9985, L500.4050, L506.0400, L502.0250 #### [facility] [address] [place], [id number] Comprehensive Metabolic Prof ilon 08-19-2023 Albumin [Mass/Vol] 3.7 g/dL Normal 3.2-5.0 [facility] Comment on above: Order Comment: Order Date: 08/19/23 Order Info: 785- - CMP Order Info: [id number] - LIPID Order Info: 3 - TSH Order Info: 7 - T4F Performed By: #### L 501.9520, L100.0100, L500.4100, L501.9985, L500.4050, L506.0400, L502.0250 #### [facility] [address] [place], [address] Albumin/Globulin [Mass ratio] 1.0 {ratio} Normal 0.9-2.4 [facility] Comment on above: Order Comment: Order Date: 08/19/23 Order Info: 785- - CMP Order Info: - LIPID Order Info: [id number] - TSH Order Info: 7 - T4F Performed By: #### L 501.9520, L100.0100, L500.4100, L501.9985, L500.4050, L506.0400, L502.0250 #### [facility] [address] [place], [address] ALK P 66 U/L Normal 45-117 [facility] Comment on above: Order Comment: Order Date: 08/19/23 Order Info: 785- - CMP Order Info: - LIPID Order Info: [id number] - TSH Order Info: 7 - T4F Performed By: #### L 501.9520, L100.0100, L500.4100, L501.9985, L500.4050, L506.0400, L502.0250 #### [facility] [address] [place], [address] ALT [Catalytic activity/Vol] 31 U/L Normal 16-61 [facility] Comment on above: Order Comment: Order Date: 08/19/23 Order Info: 0786-1 - CMP Order Info: [id number] - LIPID Order Info: 3 - TSH Order Info: [id number] - T4F Performed By: #### L 501.9520, L100.0100, L500.4100, L501.9985, L500.4050, L506.0400, L502.0250 #### [facility] [address] [place], [place], [id number] AST [Catalytic activity/Vol] 17 U/L Normal 15-37 [facility] Comment on above: Order Comment: Order Date: 08/19/23 Order Info: 0786-1 - CMP Order Info: [id number] - LIPID Order Info: 301-3 - TSH Order Info: 3027 - T4F Performed By: #### L 501.9520, L100.0100, L500.4100, L501.9985, L500.4050, L506.0400, L502.0250 #### [facility] [address] [place], [address] Bilirubin [Mass/Vol] 0.40 mg/dL Normal 0.20-1.00 [facility] Comment on above: Order Comment: Order Date: 08/19/23 Order Info: 785- - CMP Order Info: - LIPID Order Info: [id number] - TSH Order Info: 302-7 - T4F Result Comment: For patients on eltrombopag therapy, use of Dimension [place] TBIL is not recommended. Performed By: #### L 501.9520, L100.0100, L500.4100, L501.9985, L500.4050, L506.0400, L502.0250 #### [facility] [address] [place], [address] BUN/CRE 22.7 RATIO High 10-20 [facility] Comment on above: Order Comment: Order Date: 08/19/23 Order Info: 0786-1 - CMP Order Info: [id number] - LIPID Order Info: [id number] - TSH Order Info: 3024-7 - T4F Performed By: #### L 501.9520, L100.0100, L500.4100, L501.9985, L500.4050, L506.0400, L502.0250 #### [facility] [address] [place], [address] CA,Total 8.7 mg/dL Normal 8.5-10.1 [facility] Comment on above: Order Comment: Order Date: 08/19/23 Order Info: 0786-1 - CMP Order Info: [id number] - LIPID Order Info: [id number] - TSH Order Info: 3024-7 - T4F Performed By: #### L 501.9520, L100.0100, L500.4100, L501.9985, L500.4050, L506.0400, L502.0250 #### [facility] [address] [place], [address] Chloride [Moles/Vol] 112 mmol/L High 98-107 [facility] Comment on above: Order Comment: Order Date: 08/19/23 Order Info: 785-1 - CMP Order Info: [id number] - LIPID Order Info: 3 - TSH Order Info: 3024-7 - T4F Performed By: #### L 501.9520, L100.0100, L500.4100, L501.9985, L500.4050, L506.0400, L502.0250 #### [facility] [address] [place], [address] CO2 [Moles/Vol] 26.0 mmol/L Normal 21.0-32.0 [facility] Comment on above: Order Comment: Order Date: 08/19/23 Order Info: 0786-1 - CMP Order Info: [id number] - LIPID Order Info: [id number] - TSH Order Info: 3024-7 - T4F Performed By: #### L 501.9520, L100.0100, L500.4100, L501.9985, L500.4050, L506.0400, L502.0250 #### [facility] [address] [place], [address] Creatinine [Mass/Vol] 0.97 mg/dL Normal 0.70-1.30 [facility] Comment on above: Order Comment: Order Date: 08/19/23 Order Info: 0786-1 - CMP Order Info: [id number] - LIPID Order Info: [id number] - TSH Order Info: 3023-10 - T4F Result Comment: The validity of the calculated GFR GFRAA in patients over 70 years has not been determined. Clinical correlation is essential. Performed By: #### L 501.9520, L100.0100, L500.4100, L501.9985, L500.4050, L506.0400, L502.0250 #### [facility] [address] [place], [place], [id number] EST GFR - AA 101 mL/min Normal >60 [facility] Comment on above: Order Comment: Order Date: 08/19/23 Order Info: 07 - CMP Order Info: - LIPID Order Info: [id number] - TSH Order Info: 3023-10 - T4F Result Comment: Afri can [place] GFR Calc Performed By: #### L 501.9520, L100.0100, L500.4100, L501.9985, L500.4050, L506.0400, L502.0250 #### [facility] [address] [place], [place], [id number] GAP 4 Low 5-15 [facility] Comment on above: Order Comment: Order Date: 08/19/23 Order Info: 0786- - CMP Order Info: [id number] - LIPID Order Info: [id number] - TSH Order Info: 3023-10 T4F Performed By: #### L 501.9520, L100.0100, L500.4100, L501.9985, L500.4050, L506.0400, L502.0250 #### [facility] [address] [place], [place], [id number] GFR/1.73 sq M.predicted among non-blacks MDRD (S/P/Bld) [Vol rate/Area] 84 mL/min/{1.73_m2} Normal >60 [facility] Comment on above: Order Comment: Order Date: 08/19/23 Order Info: 07- - CMP Order Info: - LIPID Order Info: 3 - TSH Order Info: 3024-7 - T4F Result Comment: Non- GFR Calc Performed By: #### L 501.9520, L100.0100, L500.4100, L501.9985, L500.4050, L506.0400, L502.0250 #### [facility] [address] [place], [address] Globulin (S) [Mass/Vol] 3.6 g/dL Normal 2.2-4.2 [facility] Comment on above: Order Comment: Order Date: 08/19/23 Order Info: 785-04 - CMP Order Info: - LIPID Order Info: [id number] - TSH Order Info: 7 - T4F Performed By: #### L 501.9520, L100.0100, L500.4100, L501.9985, L500.4050, L506.0400, L502.0250 #### [facility] [address] [place], [address] Glucose [Mass/Vol] 138 mg/dL High 74-106 [facility] Comment on above: Order Comment: Order Date: 08/19/23 Order Info: 07 - CMP Order Info: [id number] - LIPID Order Info: 3 - TSH Order Info: 3024-7 - T4F Result Comment: Fast ing Glucose result greater than or equal to 126 mg/dL suggests DIABETES MELLITUS per A.D.A. criteria. Performed By: #### L 501.9520, L100.0100, L500.4100, L501.9985, L500.4050, L506.0400, L502.0250 #### [facility] [address] [place], [address] Potassium [Moles/Vol] 4.2 mmol/L Normal 3.5-5.1 [facility] Comment on above: Order Comment: Order Date: 08/19/23 Order Info: 07-1 - CMP Order Info: [id number] - LIPID Order Info: 6-3 - TSH Order Info: 3024-7 - T4F Performed By: #### L 501.9520, L100.0100, L500.4100, L501.9985, L500.4050, L506.0400, L502.0250 #### [facility] [address] [place], [address] Sodium [Moles/Vol] 142 mmol/L Normal 136-145 [facility] Comment on above: Order Comment: Order Date: 08/19/23 Order Info: 785-1 - CMP Order Info: [id number] - LIPID Order Info: 3 - TSH Order Info: 3024-7 - T4F Performed By: #### L 501.9520, L100.0100, L500.4100, L501.9985, L500.4050, L506.0400, L502.0250 #### [facility] [address] [place], [address] T PROT 7.3 g/dL Normal 6.4-8.2 [facility] Comment on above: Order Comment: Order Date: 08/19/23 Order Info: 0786-1 - CMP Order Info: [id number] - LIPID Order Info: 301-3 - TSH Order Info: 3024-7 - T4F Performed By: #### L 501.9520, L100.0100, L500.4100, L501.9985, L500.4050, L506.0400, L502.0250 #### [facility] [address] [place], [address] Urea nitrogen [Mass/Vol] 22 mg/dL High 7-18 [facility] Comment on above: Order Comment: Order Date: 08/19/23 Order Info: 0786-1 - CMP Order Info: [id number] - LIPID Order Info: [id number] - TSH Order Info: 3024-7 - T4F Performed By: #### L 501.9520, L100.0100, L500.4100, L501.9985, L500.4050, L506.0400, L502.0250 #### [facility] [address] [place], [place], [id number] Determination of erythrocyte mean corpuscular volume (MCV)Ordered By: Constantine Diaz on 08-19-2023 MCV (RBC) [Entitic vol] 90.6 fL 80-94 [facility] Erythrocyte distribution wid th ratioOrdered By: Constantine Diaz on 08-19-2023 Erythrocyte distribution width (RBC) [Ratio] 11.8 % 11.6-14.6 [facility] Erythrocyte distribution wid th standard deviationOrdered By: Constantine Diaz on 08-19-2023 Erythrocyte distribution width (RBC) [Entitic vol] 39.1 fL 35.1-43.9 [facility] Hematocrit Auto (Bld) [Volum e fraction]Ordered By: Constantine Diaz on 08-19-2023 Hematocrit (Bld) [Volume fraction] 47.3 % 40-54 [facility] Hemoglobin A1con 08-19-2023 HbA1c (Bld) [Mass fraction] 6.1 % High 3.8-5.6 [facility] Comment on above: Order Comment: Order Date: 08/19/23 Order Info: [id number] - A1C Result Comment: Norm al < 5.7 % Prediabetic 5.7 - 6.4 % Diabetic >or= 6.5 % Please note range changes. Performed By: #### L 501.9520, L100.0100, L500.4100, L501.9985, L500.4050, L506.0400, L502.0250 #### [facility] [address] [place], [place], [id number] Immature granulocytes/100 WB C Auto (Bld)Ordered By: Constantine Diaz on 08-19-2023 Immature granulocytes/100 WBC (Bld) 0.400 % 0.0-0.9 [facility] Comment on above: IG% - Immature Granu locytes (promyelocytes, myelocytes and metamyelocytes) > 1% indicates that a LEFT SHIFT is Present. Ketones Test strip Ql (U)Ord ered By: Constantine Diaz on 08-19-2023 Ketones Ql (U) Negative Negative [facility] - Chemistry and C hemistry - challengeOrdered By: Constantine Diaz on 08-19-2023 Albumin/Globulin [Mass ratio] 1.0 {ratio} 0.9-2.4 [facility] ALP [Catalytic activity/Vol] 66 U/L 45-117 [facility] ALT [Catalytic activity/Vol] 31 U/L 16-61 [facility] Cholesterol in HDL [Mass/Vol] 41 mg/dL >40 [facility] Comment on above: The drugs N-Acetylcy steine and Metamizole may falsely depress this assay. Reference Range HDL <40 mg/dL Low HDL Cholesterol HDL >or= 60 mg/dL High HDL Cholesterol Cholesterol in LDL [Mass/Vol] 17 mg/dL 0-130 [facility] CO2 [Moles/Vol] 26.0 mmol/L 21.0-32.0 [facility] Globulin (S) [Mass/Vol] 3.6 g/dL 2.2-4.2 [facility] Urea nitrogen/Creatinine [Mass ratio] 22.7 mg/mg 10-20 [facility] - Hematology and Cell countsOrdered By: Constantine Diaz on 08-19-2023 MCH (RBC) [Entitic mass] 29.9 pg 27.0-32.0 [facility] MCHC (RBC) [Mass/Vol] 33.0 g/dL 32-36 [facility] Nucleated RBC/100 WBC (Bld) [Ratio] 0 % 0-5 [facility] Platelet mean volume (Bld) [Entitic vol] 10.4 fL 6.2-12.0 [facility] Platelets (Bld) [#/Vol] 212 10*3/uL 150-450 [facility] Lipid Profileon 08-19-2023 Cholesterol [Mass/Vol] 112 mg/dL Normal 200 [facility] Comment on above: Order Comment: Order Date: 08/19/23 Order Info: 0786- - CMP Order Info: - LIPID Order Info: 3 - TSH Order Info: 3023-10 - T4F Result Comment: <200 mg/dL Desirable 200-240 mg/dL Borderline >240 mg/dL High Risk Performed By: #### L 501.9520, L100.0100, L500.4100, L501.9985, L500.4050, L506.0400, L502.0250 #### [facility] [address] [place], [address] Cholesterol in HDL [Mass/Vol] 41 mg/dL Normal [facility] Comment on above: Order Comment: Order Date: 08/19/23 Order Info: [id number] - CMP Order Info: - LIPID Order Info: [id number] - TSH Order Info: 3023-10 - T4F Result Comment: The drugs N-Acetylcysteine and Metamizole may falsely depress this assay. Reference Range HDL <40 mg/dL Low HDL Cholesterol HDL >or= 60 mg/dL High HDL Cholesterol Performed By: #### L 501.9520, L100.0100, L500.4100, L501.9985, L500.4050, L506.0400, L502.0250 #### [facility] [address] [place], [address] Cholesterol in LDL [Mass/Vol] 17 mg/dL Normal 0-130 [facility] Comment on above: Order Comment: Order Date: 08/19/23 Order Info: 07 - CMP Order Info: [id number] - LIPID Order Info: [id number] - TSH Order Info: 3023-10 - T4F Performed By: #### L 501.9520, L100.0100, L500.4100, L501.9985, L500.4050, L506.0400, L502.0250 #### [facility] [address] [place], [address] Cholesterol in VLDL [Mass/Vol] 54 mg/dL High 5-40 [facility] Comment on above: Order Comment: Order Date: 08/19/23 Order Info: 0786-1 - CMP Order Info: [id number] - LIPID Order Info: 3 - TSH Order Info: 7 - T4F Performed By: #### L 501.9520, L100.0100, L500.4100, L501.9985, L500.4050, L506.0400, L502.0250 #### [facility] [address] [place], [place], [id number] Triglyceride [Mass/Vol] 269 mg/dL High [facility] Comment on above: Order Comment: Order Date: 08/19/23 Order Info: 0786-1 - CMP Order Info: [id number] - LIPID Order Info: [id number] - TSH Order Info: 3023-10 - T4F Result Comment: The drugs N-Acetylcysteine and Metamizole may falsely depress this assay. Serum Triglycerides Reference Interval Normal <150 mg/dL Borderline high 150 - 199 mg/dL High 200 - 499 mg/dL Very High > or = 500 mg/dL Performed By: #### L 501.9520, L100.0100, L500.4100, L501.9985, L500.4050, L506.0400, L502.0250 #### [facility] [address] [place], [place], [phone] Microalb:Creat Ratio,Random URon 08-19-2023 Creatinine [Mass/Vol] 92.90 mg/dL Normal NO RAN GE EST. [facility] Comment on above: Order Comment: Order Date: 08/19/23 Order Info: [id number] - MIACRE Performed By: #### L 501.9520, L100.0100, L500.4100, L501.9985, L500.4050, L506.0400, L502.0250 #### [facility] [address] [place], [place], [id number] MALB:CRE 11.3 mg/g CRE Normal <30 mg/g CRE [facility] Comment on above: Order Comment: Order Date: 08/19/23 Order Info: [id number] - MIACRE Performed By: #### L 501.9520, L100.0100, L500.4100, L501.9985, L500.4050, L506.0400, L502.0250 #### [facility] [address] [place], [place], [address] MICROALBUMIN,UR 10.5 mg/L Normal NO RANGE EST. [facility] Comment on above: Order Comment: Order Date: 08/19/23 Order Info: [id number] - MIACRE Performed By: #### L 501.9520, L100.0100, L500.4100, L501.9985, L500.4050, L506.0400, L502.0250 #### [facility] [address] [place], [place], [address] Mucus LM Ql (Urine sed)Order ed By: Constantine Diaz on 08-19-2023 Mucus Ql (Urine sed) 0 SEEN /hpf [facility] Nitrite Test strip Ql (U)Ord ered By: Constantine Diaz on 08-19-2023 Nitrite Ql (U) Negative Negative [facility] No Panel InformationOrdered By: Constantine Diaz on 08-19-2023 Estimated GFR (MDRD) Amer 101 mL/min >60 [facility] Comment on above: GFR Calc Estimated GFR (MDRD) Non-Af Amer 84 mL/min >60 [facility] Comment on above: Non- GFR Calc Urine Microalbumin/Creatinine Ratio 11.3 mg/g CRE <30 [facility] Urine RBC 0 SEEN /hpf 0-5 [facility] VLDL Cholesterol 54 mg/dL 5-40 [facility] Protein Test strip Ql (U)Ord ered By: Constantine Diaz on 08-19-2023 Protein Ql (U) Negative Negative [facility] RBC Auto (Bld) [#/Vol]Ordere d By: Constantine Diaz on 08-19-2023 RBC (Bld) [#/Vol] 5.22 10*6/uL 4.6-6.2 [facility] Serum or plasma calcium maged urement (mass/volume)Ordered By: Constantine Diaz on 08-19-2023 Calcium [Mass/Vol] 8.7 mg/dL 8.5-10.1 [facility] Serum or plasma creatinine m easurement (mass/volume)Ordered By: Constantine Diaz on 08-19-2023 Creatinine [Mass/Vol] 0.97 mg/dL 0.70-1.30 [facility] Comment on above: The validity of the calculated GFR & GFRAA in patients over 70 years has not been determined. Clinical correlation is essential. Serum or plasma thyroid stim ulating hormone (TSH) measurement (units/volume)Ordered By: Constantine Diaz on 08-19-2023 TSH Qn 8.27 uIU/mL 0.358-3.74 [facility] Serum or plasma urea nitroge n measurement (mass/volume)Ordered By: Constantine Diaz on 08-19-2023 Urea nitrogen [Mass/Vol] 22 mg/dL 7-18 [facility] Squamous epithelial cells de tection in urine sediment by light microscopyOrdered By: Constantine Diaz on 08-19-2023 Epithelial cells.squamous LM Ql (Urine sed) 0 SEEN /hpf 0-5 [facility] T4 Free Directon 08-19-2023 T4 FREE DIRECT 1.15 ng/dL Normal 0.76-1.46 [facility] Comment on above: Order Comment: Order Date: 08/19/23 Order Info: [id number] - CMP Order Info: [id number] - LIPID Order Info: [id number] - TSH Order Info: 3024-7 - T4F Performed By: #### L 501.9520, L100.0100, L500.4100, L501.9985, L500.4050, L506.0400, L502.0250 #### [facility] [address] [place], [place], [id number] Thin prep Papanicolaou smear with manual screeningOrdered By: Constantine Diaz on 08-19-2023 Thin prep Papanicolaou smear with manual screening 3.7 g/dL 3.2-5.0 [facility] Thin prep Papanicolaou smear with manual screening 17 U/L 15-37 [facility] Thin prep Papanicolaou smear with manual screening 4 5-15 [facility] Thin prep Papanicolaou smear with manual screening 10.5 mg/L NO RANGE EST. [facility] Thin prep Papanicolaou smear with manual screening 1.15 ng/dL 0.76-1.46 [facility] Thyroid Stim Hormone (TSH)on 08-19-2023 TSH 8.27 uIU/mL High 0.358-3.74 [facility] Comment on above: Order Comment: Order Date: 08/19/23 Order Info: 0786-1 - CMP Order Info: [id number] - LIPID Order Info: [id number] - TSH Order Info: 3024-7 - T4F Performed By: #### L 501.9520, L100.0100, L500.4100, L501.9985, L500.4050, L506.0400, L502.0250 #### [facility] [address] [facility] [address] Urinalysis, Completeon 08-18 BACTERIA 0 SEEN Normal None Seen [facility] Comment on above: Order Comment: CLEAN CATCH Performed By: #### L 400.0001 #### [facility] [address] [facility] [address] EPI,SQUAMOUS 0 SEEN Normal 0-5 [facility] Comment on above: Order Comment: CLEAN CATCH Performed By: #### L 400.0001 #### [facility] [address] [facility] [address] Mucus Ql (Urine sed) 0 SEEN Normal [facility] Comment on above: Order Comment: CLEAN CATCH Performed By: #### L 400.0001 #### [facility] [address] [facility] [address] RBC 0 SEEN Normal 0-5 [facility] Comment on above: Order Comment: CLEAN CATCH Performed By: #### L 400.0001 #### [facility] [address] [place] [id number] WBC 0 SEEN Normal 0-5 [facility] Comment on above: Order Comment: CLEAN CATCH Performed By: #### L 400.0001 #### [facility] [address] [place], [place], [address] Urine blood detectionOrdered By: Constantine Diaz on 08-19-2023 RBC Ql (U) Negative Negative [facility] Urine clarityOrdered By: Jewel Diaz on 08-19-2023 Clarity (U) Clear Clear [facility] Urine color determinationOrd ered By: Constantine Diaz on 08-19-2023 Color (U) Yellow Yellow [facility] Urine creatinine measurement (mass/volume)Ordered By: Constantine Diaz on 08-19-2023 Creatinine (U) [Mass/Vol] 92.90 mg/dL NO RANGE EST. [facility] Urine glucose detectionOrder ed By: Constantine Diaz on 08-19-2023 Glucose Ql (U) 250 mg/dl Normal [facility] Urine leukocyte esterase det ection by dipstickOrdered By: Constantine Diaz on 08-19-2023 Leukocyte esterase Test strip Ql (U) Negative Negative [facility] Urine pHOrdered By: Constantine betancur on 08-19-2023 pH (U) 6.5 [pH] 5.0 - 8.0 [facility] Urine sediment bacteria coun t by microscopy (number/high power field)Ordered By: Constantine Diaz on 08-19-2023 Bacteria LM.HPF (Urine sed) [#/Area] 0 /[HPF] None Seen [facility] Urine specific gravity measu rementOrdered By: Constantine Diaz on 08-19-2023 Specific gravity (U) [Rel density] 1.015 1.002-1.03 0 [facility] Urine urobilinogen measureme ntOrdered By: Constantine Diaz on 08-19-2023 Urobilinogen Ql (U) Normal mg/dl Normal [facility] Whole blood hemoglobin A1c/t otal hemoglobin ratio (mass fraction)Ordered By: Constantine Diaz on 08-19-2023 HbA1c (Bld) [Mass fraction] 6.1 % 3.8-5.6 [facility] Comment on above: Normal < 5.7 % Predi abetic 5.7 - 6.4 % Diabetic >or= 6.5 % Please note range changes. Absolute lymphocyte countOrd ered By: Constantine Amandacherie on 05-20-2023 Lymphocytes Auto (Unsp spec) [#/Vol] 1.64 10*3/uL 0.83-4.51 [facility] Automated lymphocyte count a s percentage of total leukocytesOrdered By: Constantine Emily on 05-20-2023 Lymphocytes/100 WBC Auto (Unsp spec) 29.4 % 19-41 [facility] Basophil percentageOrdered B y: Constantine Diaz on 05-20-2023 Basophils/100 WBC (Bld) 1.3 % 0-1 [facility] Bilirubin [Mass/Vol] 0.60 mg/dL 0.20-1.00 [facility] Comment on above: For patients on eltr ombopag therapy, use of Dimension [place] TBIL is not recommended. Chloride [Moles/Vol] 108 mmol/L 98-107 [facility] Cholesterol [Mass/Vol] 113 mg/dL <200 [facility] Comment on above: <200 mg/dL Desirable 200-240 mg/dL Borderline >240 mg/dL High Risk Eosinophils/100 WBC (Bld) 5.9 % 0-5 [facility] Glucose [Mass/Vol] 129 mg/dL 74-106 [facility] Comment on above: Fasting Glucose resu lt greater than or equal to 126 mg/dL suggests DIABETES MELLITUS per A.D.A. criteria. Hemoglobin (Bld) [Mass/Vol] 15.8 g/dL 13.0-16.5 [facility] Monocytes/100 WBC (Bld) 8.2 % 0-10 [facility] Neutrophils (Bld) [#/Vol] 3.1 10*3/uL 2.0-7.7 [facility] Neutrophils/100 WBC (Bld) 55.0 % 47-70 [facility] Potassium [Moles/Vol] 4.4 mmol/L 3.5-5.1 [facility] Protein [Mass/Vol] 7.6 g/dL 6.4-8.2 [facility] Sodium [Moles/Vol] 137 mmol/L 136-145 [facility] Triglyceride [Mass/Vol] 85 mg/dL <199 [facility] Comment on above: The drugs N-Acetylcy steine and Metamizole may falsely depress this assay.Serum Triglycerides Reference Interval Normal <150 mg/dL Borderline high 150 - 199 mg/dL High 200 - 499 mg/dL Very High > or = 500 mg/dL WBC (Bld) [#/Vol] 5.6 10*3/uL 4.4-11.0 [facility] CBC W/Diff, Automatedon 04-29 Absolute Lymph 1.64 X10 3/uL Normal 0.83-4.51 [facility] Comment on above: Order Comment: Order Date: 05/20/23 Order Info: [id number] - CBCD Performed By: #### L 500.4100, L506.0400, L100.0100, L501.9520 #### [facility] [address] [place], [address] Absolute Neut 3.1 X10 3/uL Normal 2.0-7.7 [facility] Comment on above: Order Comment: Order Date: 05/20/23 Order Info: [id number] - CBCD Performed By: #### L 500.4100, L506.0400, L100.0100, L501.9520 #### [facility] [address] [place], [address] Basophils/100 WBC (Bld) 1.3 % High 0-1 [facility] Comment on above: Order Comment: Order Date: 05/20/23 Order Info: 0184-1 - CBCD Performed By: #### L 500.4100, L506.0400, L100.0100, L501.9520 #### [facility] [address] [place], [address] Eosinophils/100 WBC (Bld) 5.9 % High 0-5 [facility] Comment on above: Order Comment: Order Date: 05/20/23 Order Info: 0184-1 - CBCD Performed By: #### L 500.4100, L506.0400, L100.0100, L501.9520 #### [facility] [address] [place], [address] Erythrocyte distribution width (RBC) [Ratio] 11.8 % Normal 11.6-14.6 [facility] Comment on above: Order Comment: Order Date: 05/20/23 Order Info: 0184-1 - CBCD Performed By: #### L 500.4100, L506.0400, L100.0100, L501.9520 #### [facility] [address] [place], [address] Hematocrit (Bld) [Volume fraction] 48.2 % Normal 40-54 [facility] Comment on above: Order Comment: Order Date: 05/20/23 Order Info: 0184- - CBCD Performed By: #### L 500.4100, L506.0400, L100.0100, L501.9520 #### [facility] [address] [place], [address] Hemoglobin (Bld) [Mass/Vol] 15.8 g/dL Normal 13.0-16.5 [facility] Comment on above: Order Comment: Order Date: 05/20/23 Order Info: 0184-1 - CBCD Performed By: #### L 500.4100, L506.0400, L100.0100, L501.9520 #### [facility] [address] [place], [address] IG% 0.200 Normal 0.0-0.9 [facility] Comment on above: Order Comment: Order Date: 05/20/23 Order Info: 0184-1 - CBCD Result Comment: IG% - Immature Granulocytes (promyelocytes, myelocytes and metamyelocytes) > 1% indicates that a LEFT SHIFT is Present. Performed By: #### L 500.4100, L506.0400, L100.0100, L501.9520 #### [facility] [address] [place], [address] Lymphocytes/100 WBC (Bld) 29.4 % Normal 19-41 [facility] Comment on above: Order Comment: Order Date: 05/20/23 Order Info: 0184-1 - CBCD Performed By: #### L 500.4100, L506.0400, L100.0100, L501.9520 #### [facility] [address] [place], [address] MCH (RBC) [Entitic mass] 29.8 pg Normal 27.0-32.0 [facility] Comment on above: Order Comment: Order Date: 05/20/23 Order Info: 0184-1 - CBCD Performed By: #### L 500.4100, L506.0400, L100.0100, L501.9520 #### [facility] [address] [place], [address] MCHC (RBC) [Mass/Vol] 32.8 g/dL Normal 32-36 [facility] Comment on above: Order Comment: Order Date: 05/20/23 Order Info: 0184-1 - CBCD Performed By: #### L 500.4100, L506.0400, L100.0100, L501.9520 #### [facility] [address] [place], [address] MCV (RBC) [Entitic vol] 90.9 fL Normal 80-94 [facility] Comment on above: Order Comment: Order Date: 05/20/23 Order Info: 0184-1 - CBCD Performed By: #### L 500.4100, L506.0400, L100.0100, L501.9520 #### [facility] [address] [place], [address] Monocytes/100 WBC (Bld) 8.2 % Normal 0-10 [facility] Comment on above: Order Comment: Order Date: 05/20/23 Order Info: 0184-1 - CBCD Performed By: #### L 500.4100, L506.0400, L100.0100, L501.9520 #### [facility] [address] [place], [address] Neutrophils/100 WBC (Bld) 55.0 % Normal 47-70 [facility] Comment on above: Order Comment: Order Date: 05/20/23 Order Info: 0184-1 - CBCD Performed By: #### L 500.4100, L506.0400, L100.0100, L501.9520 #### [facility] [address] [place], [address] Nucleated RBC (Bld) [#/Vol] 0 10*3/uL Normal 0-5 [facility] Comment on above: Order Comment: Order Date: 05/20/23 Order Info: 0184-1 - CBCD Performed By: #### L 500.4100, L506.0400, L100.0100, L501.9520 #### [facility] [address] [place], [address] Platelet mean volume (Bld) [Entitic vol] 9.7 fL Normal 6.2-12.0 [facility] Comment on above: Order Comment: Order Date: 05/20/23 Order Info: 0184-1 - CBCD Performed By: #### L 500.4100, L506.0400, L100.0100, L501.9520 #### [facility] [address] [place], [address] Platelets (Bld) [#/Vol] 212 10*3/uL Normal 150-450 [facility] Comment on above: Order Comment: Order Date: 05/20/23 Order Info: 0184-1 - CBCD Performed By: #### L 500.4100, L506.0400, L100.0100, L501.9520 #### [facility] [address] [place], [address] RBC (Bld) [#/Vol] 5.30 10*6/uL Normal 4.6-6.2 [facility] Comment on above: Order Comment: Order Date: 05/20/23 Order Info: 0184-1 - CBCD Performed By: #### L 500.4100, L506.0400, L100.0100, L501.9520 #### [facility] [address] [place], [address] RDW SD 39.5 fl Normal 35.1-43.9 [facility] Comment on above: Order Comment: Order Date: 05/20/23 Order Info: 0184-1 - CBCD Performed By: #### L 500.4100, L506.0400, L100.0100, L501.9520 #### [facility] [address] [place], [address] WBC (Bld) [#/Vol] 5.6 10*3/uL Normal 4.4-11.0 [facility] Comment on above: Order Comment: Order Date: 05/20/23 Order Info: 0184-1 - CBCD Performed By: #### L 500.4100, L506.0400, L100.0100, L501.9520 #### [facility] [address] [place], [address] Comprehensive Metabolic Prof [facility] 05-20-2023 Albumin [Mass/Vol] 3.9 g/dL Normal 3.2-5.0 [facility] Comment on above: Order Comment: Order Date: 08/19/23 Order Info: 0779-1 - MIACRE Performed By: #### L 501.9520, L100.0100, L500.4100, L501.9985, L500.4050, L506.0400, L502.0250 #### [facility] [address] [place], [address] Albumin/Globulin [Mass ratio] 1.1 {ratio} Normal 0.9-2.4 [facility] Comment on above: Order Comment: Order Date: 08/19/23 Order Info: 0779-1 - MIACRE Performed By: #### L 501.9520, L100.0100, L500.4100, L501.9985, L500.4050, L506.0400, L502.0250 #### [facility] [address] [place], [address] ALK P 54 U/L Normal 45-117 [facility] Comment on above: Order Comment: Order Date: 08/19/23 Order Info: 0779-1 - MIACRE Performed By: #### L 501.9520, L100.0100, L500.4100, L501.9985, L500.4050, L506.0400, L502.0250 #### [facility] [address] [place], [place], [id number] ALT [Catalytic activity/Vol] 30 U/L Normal 16-61 [facility] Comment on above: Order Comment: Order Date: 08/19/23 Order Info: 0779-1 - MIACRE Performed By: #### L 501.9520, L100.0100, L500.4100, L501.9985, L500.4050, L506.0400, L502.0250 #### [facility] [address] [place], [place], [phone] (545) AST [Catalytic activity/Vol] 16 U/L Normal 15-37 [facility] Comment on above: Order Comment: Order Date: 08/19/23 Order Info: 0779-1 - MIACRE Performed By: #### L 501.9520, L100.0100, L500.4100, L501.9985, L500.4050, L506.0400, L502.0250 #### [facility] [address] [place], [place], [id number] Bilirubin [Mass/Vol] 0.60 mg/dL Normal 0.20-1.00 [facility] Comment on above: Order Comment: Order Date: 08/19/23 Order Info: 0779-1 - MIACRE Result Comment: For patients on eltrombopag therapy, use of Dimension [place] TBIL is not recommended. Performed By: #### L 501.9520, L100.0100, L500.4100, L501.9985, L500.4050, L506.0400, L502.0250 #### [facility] [address] [place], [address] BUN/CRE 24.9 RATIO High 10-20 [facility] Comment on above: Order Comment: Order Date: 08/19/23 Order Info: 0779-1 - MIACRE Performed By: #### L 501.9520, L100.0100, L500.4100, L501.9985, L500.4050, L506.0400, L502.0250 #### [facility] [address] [place], [place], [id number] CA,Total 9.0 mg/dL Normal 8.5-10.1 [facility] Comment on above: Order Comment: Order Date: 08/19/23 Order Info: 0779-1 - MIACRE Performed By: #### L 501.9520, L100.0100, L500.4100, L501.9985, L500.4050, L506.0400, L502.0250 #### [facility] [address] [place], [place], [id number] Chloride [Moles/Vol] 108 mmol/L High 98-107 [facility] Comment on above: Order Comment: Order Date: 08/19/23 Order Info: 0779-1 - MIACRE Performed By: #### L 501.9520, L100.0100, L500.4100, L501.9985, L500.4050, L506.0400, L502.0250 #### [facility] [address] [place], [place], [id number] CO2 [Moles/Vol] 24.0 mmol/L Normal 21.0-32.0 [facility] Comment on above: Order Comment: Order Date: 08/19/23 Order Info: 0779-1 - MIACRE Performed By: #### L 501.9520, L100.0100, L500.4100, L501.9985, L500.4050, L506.0400, L502.0250 #### [facility] [address] [place], [address] Creatinine [Mass/Vol] 0.96 mg/dL Normal 0.70-1.30 [facility] Comment on above: Order Comment: Order Date: 08/19/23 Order Info: 0779-1 - MIACRE Result Comment: The validity of the calculated GFR GFRAA in patients over 70 years has not been determined. Clinical correlation is essential. Performed By: #### L 501.9520, L100.0100, L500.4100, L501.9985, L500.4050, L506.0400, L502.0250 #### [facility] [address] [place], [place], [phone] EST GFR - AA 102 mL/min Normal >60 [facility] Comment on above: Order Comment: Order Date: 08/19/23 Order Info: 0779-1 - MIACRE Result Comment: Afri can [place] GFR Calc Performed By: #### L 501.9520, L100.0100, L500.4100, L501.9985, L500.4050, L506.0400, L502.0250 #### [facility] [address] [place], [place], [id number] GAP 5 Normal 5-15 [facility] Comment on above: Order Comment: Order Date: 08/19/23 Order Info: 0779-1 - MIACRE Performed By: #### L 501.9520, L100.0100, L500.4100, L501.9985, L500.4050, L506.0400, L502.0250 #### [facility] [address] [place], [address] GFR/1.73 sq M.predicted among non-blacks MDRD (S/P/Bld) [Vol rate/Area] 84 mL/min/{1.73_m2} Normal >60 [facility] Comment on above: Order Comment: Order Date: 08/19/23 Order Info: 0779-1 - MIACRE Result Comment: Non- GFR Calc Performed By: #### L 501.9520, L100.0100, L500.4100, L501.9985, L500.4050, L506.0400, L502.0250 #### [facility] [address] [place], [address] Globulin (S) [Mass/Vol] 3.7 g/dL Normal 2.2-4.2 [facility] Comment on above: Order Comment: Order Date: 08/19/23 Order Info: 0779-1 - MIACRE Performed By: #### L 501.9520, L100.0100, L500.4100, L501.9985, L500.4050, L506.0400, L502.0250 #### [facility] [address] [place], [address] Glucose [Mass/Vol] 129 mg/dL High 74-106 [facility] Comment on above: Order Comment: Order Date: 08/19/23 Order Info: 0779-1 - MIACRE Result Comment: Fast ing Glucose result greater than or equal to 126 mg/dL suggests DIABETES MELLITUS per A.D.A. criteria. Performed By: #### L 501.9520, L100.0100, L500.4100, L501.9985, L500.4050, L506.0400, L502.0250 #### [facility] [address] [place], [address] Potassium [Moles/Vol] 4.4 mmol/L Normal 3.5-5.1 [facility] Comment on above: Order Comment: Order Date: 08/19/23 Order Info: 0779-1 - MIACRE Performed By: #### L 501.9520, L100.0100, L500.4100, L501.9985, L500.4050, L506.0400, L502.0250 #### [facility] [address] [place], [place], [id number] Sodium [Moles/Vol] 137 mmol/L Normal 136-145 [facility] Comment on above: Order Comment: Order Date: 08/19/23 Order Info: 0779-1 - MIACRE Performed By: #### L 501.9520, L100.0100, L500.4100, L501.9985, L500.4050, L506.0400, L502.0250 #### [facility] [address] [place], [address] T PROT 7.6 g/dL Normal 6.4-8.2 [facility] Comment on above: Order Comment: Order Date: 08/19/23 Order Info: 0779-1 - MIACRE Performed By: #### L 501.9520, L100.0100, L500.4100, L501.9985, L500.4050, L506.0400, L502.0250 #### [facility] [address] [place], [address] Urea nitrogen [Mass/Vol] 24 mg/dL High 7-18 [facility] Comment on above: Order Comment: Order Date: 08/19/23 Order Info: 0779-1 - MIACRE Performed By: #### L 501.9520, L100.0100, L500.4100, L501.9985, L500.4050, L506.0400, L502.0250 #### [facility] [address] [place], [place], [phone] Determination of erythrocyte mean corpuscular volume (MCV)Ordered By: Constantine Diaz on 05-20-2023 MCV (RBC) [Entitic vol] 90.9 fL 80-94 [facility] Erythrocyte distribution wid th ratioOrdered By: Constantine Diaz on 05-20-2023 Erythrocyte distribution width (RBC) [Ratio] 11.8 % 11.6-14.6 [facility] Erythrocyte distribution wid th standard deviationOrdered By: Constantine Diaz on 05-20-2023 Erythrocyte distribution width (RBC) [Entitic vol] 39.5 fL 35.1-43.9 [facility] Hematocrit Auto (Bld) [Volum e fraction]Ordered By: Constantine Diaz on 05-20-2023 Hematocrit (Bld) [Volume fraction] 48.2 % 40-54 [facility] Hemoglobin A1con 05-20-2023 HbA1c (Bld) [Mass fraction] 6.3 % High 3.8-5.6 [facility] Comment on above: Order Comment: Order Date: 08/19/23 Order Info: 0779-1 - MIACRE Result Comment: Norm al < 5.7 % Prediabetic 5.7 - 6.4 % Diabetic >or= 6.5 % Please note range changes. Performed By: #### L 501.9520, L100.0100, L500.4100, L501.9985, L500.4050, L506.0400, L502.0250 #### [facility] [address] [place], [address] High density lipoprotein (HD L) measurementOrdered By: Constantine Diaz on 05-20-2023 Cholesterol in HDL (Body fld) [Mass/Vol] 53 mg/dL >40 [facility] Comment on above: The drugs N-Acetylcy steine and Metamizole may falsely depress this assay. Reference Range HDL <40 mg/dL Low HDL Cholesterol HDL >or= 60 mg/dL High HDL Cholesterol Immature granulocytes/100 WB C Auto (Bld)Ordered By: Constantine Diaz on 05-20-2023 Immature granulocytes/100 WBC (Bld) 0.200 % 0.0-0.9 [facility] Comment on above: IG% - Immature Granu locytes (promyelocytes, myelocytes and metamyelocytes) > 1% indicates that a LEFT SHIFT is Present. Laboratory - Chemistry and C hemistry - challengeOrdered By: Constantine Diaz on 05-20-2023 Albumin/Globulin [Mass ratio] 1.1 {ratio} 0.9-2.4 [facility] ALP [Catalytic activity/Vol] 54 U/L 45-117 [facility] ALT [Catalytic activity/Vol] 30 U/L 16-61 [facility] CO2 [Moles/Vol] 24.0 mmol/L 21.0-32.0 [facility] Globulin (S) [Mass/Vol] 3.7 g/dL 2.2-4.2 [facility] Urea nitrogen/Creatinine [Mass ratio] 24.9 mg/mg 10-20 [facility] - Hematology and Cell countsOrdered By: Constantine Diaz on 05-20-2023 MCH (RBC) [Entitic mass] 29.8 pg 27.0-32.0 [facility] MCHC (RBC) [Mass/Vol] 32.8 g/dL 32-36 [facility] Nucleated RBC/100 WBC (Bld) [Ratio] 0 % 0-5 [facility] Platelets (Bld) [#/Vol] 212 10*3/uL 150-450 [facility] Lipid Profileon 05-20-2023 Cholesterol [Mass/Vol] 113 mg/dL Normal 200 [facility] Comment on above: Order Comment: Order Date: 02/18/23 Order Info: 0786-1 - CMP Order Date: 05/20/23 Order Info: [id number] - LIPID Order Info: 3016-3 - TSH Order Info: 3024-7 - T4F Result Comment: <200 mg/dL Desirable 200-240 mg/dL Borderline >240 mg/dL High Risk Performed By: #### L 500.4100, L506.0400, L100.0100, L501.9520 #### [facility] [address] [place], [place], [id number] Cholesterol in HDL [Mass/Vol] 53 mg/dL Normal [facility] Comment on above: Order Comment: Order Date: 02/18/23 Order Info: [id number] - CMP Order Date: 05/20/23 Order Info: [id number] - LIPID Order Info: 3 - TSH Order Info: 3023-10 - T4F Result Comment: The drugs N-Acetylcysteine and Metamizole may falsely depress this assay. Reference Range HDL <40 mg/dL Low HDL Cholesterol HDL >or= 60 mg/dL High HDL Cholesterol Performed By: #### L 500.4100, L506.0400, L100.0100, L501.9520 #### [facility] [address] [place], [address] Cholesterol in LDL [Mass/Vol] 43 mg/dL Normal 0-130 [facility] Comment on above: Order Comment: Order Date: 02/18/23 Order Info: [id number] - CMP Order Date: 05/20/23 Order Info: [id number] - LIPID Order Info: [id number] - TSH Order Info: 3023-10 - T4F Performed By: #### L 500.4100, L506.0400, L100.0100, L501.9520 #### [facility] [address] [place], [address] Cholesterol in VLDL [Mass/Vol] 17 mg/dL Normal 5-40 [facility] Comment on above: Order Comment: Order Date: 02/18/23 Order Info: [id number] - CMP Order Date: 05/20/23 Order Info: [id number] - LIPID Order Info: [id number] - TSH Order Info: 3023-10 - T4F Performed By: #### L 500.4100, L506.0400, L100.0100, L501.9520 #### [facility] [address] [place], [address] Triglyceride [Mass/Vol] 85 mg/dL Normal [facility] Comment on above: Order Comment: Order Date: 02/18/23 Order Info: [id number] - CMP Order Date: 05/20/23 Order Info: [id number] - LIPID Order Info: 3 - TSH Order Info: 7 - T4F Result Comment: The drugs N-Acetylcysteine and Metamizole may falsely depress this assay. Serum Triglycerides Reference Interval Normal <150 mg/dL Borderline high 150 - 199 mg/dL High 200 - 499 mg/dL Very High > or = 500 mg/dL Performed By: #### L 500.4100, L506.0400, L100.0100, L501.9520 #### [facility] [address] [place], [place], [id number] Low density lipoprotein (LDL ) cholesterol measurementOrdered By: Constantine Diaz on 05-20-2023 Cholesterol in LDL (Body fld) [Moles/Vol] 43 mg/dL 0-130 [facility] Microalb:Creat Ratio,Random URon 05-20-2023 Creatinine [Mass/Vol] 97.60 mg/dL Normal NO RAN GE EST. [facility] Comment on above: Order Comment: Order Date: 08/19/23 Order Info: 018- - CBCD Performed By: #### L 501.9520, L100.0100, L500.4100, L501.9985, L500.4050, L506.0400, L502.0250 #### [facility] [address] [place], [place], [id number] MALB:CRE 10.2 mg/g CRE Normal <30 mg/g CRE [facility] Comment on above: Order Comment: Order Date: 08/19/23 Order Info: [id number]- - CBCD Performed By: #### L 501.9520, L100.0100, L500.4100, L501.9985, L500.4050, L506.0400, L502.0250 #### [facility] [address] [place], [place], [id number] MICROALBUMIN,UR 10.0 mg/L Normal NO RANGE EST. [facility] Comment on above: Order Comment: Order Date: 08/19/23 Order Info: [id number]- - CBCD Performed By: #### L 501.9520, L100.0100, L500.4100, L501.9985, L500.4050, L506.0400, L502.0250 #### [facility] [place], [address] No Panel InformationOrdered By: Constantine Diaz on 05-20-2023 Estimated GFR (MDRD) Amer 102 mL/min >60 [facility] Comment on above: GFR Calc Estimated GFR (MDRD) Non-Af Amer 84 mL/min >60 [facility] Comment on above: Non- GFR Calc Platelet mean volume Roly-Ec ker (Bld) [Entitic vol]Ordered By: Constantine Diaz on 05-20-2023 Platelet mean volume (Bld) [Entitic vol] 9.7 fL 6.2-12.0 [facility] RBC Auto (Bld) [#/Vol]Ordere d By: Constantine Diaz on 05-20-2023 RBC (Bld) [#/Vol] 5.30 10*6/uL 4.6-6.2 [facility] Serum or plasma calcium maged urement (mass/volume)Ordered By: Constantine Diaz on 05-20-2023 Calcium [Mass/Vol] 9.0 mg/dL 8.5-10.1 [facility] Serum or plasma creatinine m easurement (mass/volume)Ordered By: Constantine Diaz on 05-20-2023 Creatinine [Mass/Vol] 0.96 mg/dL 0.70-1.30 [facility] Comment on above: The validity of the calculated GFR & GFRAA in patients over 70 years has not been determined. Clinical correlation is essential. Serum or plasma thyroid stim ulating hormone (TSH) measurement (units/volume)Ordered By: Constantine Diaz on 05-20-2023 TSH Qn 35.80 uIU/mL 0.358-3.74 [facility] Serum or plasma urea nitroge n measurement (mass/volume)Ordered By: Constantine Diaz on 05-20-2023 Urea nitrogen [Mass/Vol] 24 mg/dL 7-18 [facility] T4 Free Directon 05-20-2023 T4 FREE DIRECT 0.78 ng/dL Normal 0.76-1.46 [facility] Comment on above: Order Comment: Order Date: 08/19/23 Order Info: [id number] - CBCD Performed By: #### L 501.9520, L100.0100, L500.4100, L501.9985, L500.4050, L506.0400, L502.0250 #### [facility] [address] [place], [address] Thin prep Papanicolaou smear with manual screeningOrdered By: Constantine Diaz on 05-20-2023 Thin prep Papanicolaou smear with manual screening 3.9 g/dL 3.2-5.0 [facility] Thin prep Papanicolaou smear with manual screening 16 U/L 15-37 [facility] Thin prep Papanicolaou smear with manual screening 5 5-15 [facility] Thin prep Papanicolaou smear with manual screening 10.0 mg/L NO RANGE EST. [facility] Thin prep Papanicolaou smear with manual screening 0.78 ng/dL 0.76-1.46 [facility] Thyroid Stim Hormone (TSH)on 05-20-2023 TSH 35.80 uIU/mL High 0.358-3.74 [facility] Comment on above: Order Comment: Order Date: 08/19/23 Order Info: [id number] - CBCD Performed By: #### L 501.9520, L100.0100, L500.4100, L501.9985, L500.4050, L506.0400, L502.0250 #### [facility] [address] [place], [address] Urine albumin/creatinine rat io for detection of microalbuminuriaOrdered By: Constantine Diaz on 05-20-2023 Albumin/Creatinine DL <= 1.0 mg/L (24H U) [Ratio] 10.2 mg/g CRE <30 [facility] Urine creatinine measurement (mass/volume)Ordered By: Constantine Diaz on 05-20-2023 Creatinine (U) [Mass/Vol] 97.60 mg/dL NO RANGE EST. [facility] Very low density lipoprotein (VLDL) cholesterol measurementOrdered By: Constantine Diaz on 01-23-2024 Cholesterol in VLDL Calc [Moles/Vol] 17 mg/dL 5-40 [facility] Whole blood hemoglobin A1c/t otal hemoglobin ratio (mass fraction)Ordered By: Constantine Diaz on 05-20-2023 HbA1c (Bld) [Mass fraction] 6.3 % 3.8-5.6 [facility] Comment on above: Normal < 5.7 % Predi abetic 5.7 - 6.4 % Diabetic >or= 6.5 % Please note range changes. Absolute lymphocyte countOrd ered By: Constantine Diaz on 02-18-2023 Lymphocytes Auto (Unsp spec) [#/Vol] 1.50 10*3/uL 0.83-4.51 [facility] Basophil percentageOrdered B y: Constantine Diaz on 02-18-2023 Basophils/100 WBC (Bld) 1.0 % 0-1 [facility] Bilirubin [Mass/Vol] 0.50 mg/dL 0.20-1.00 [facility] Comment on above: For patients on eltr ombopag therapy, use of Dimension [place] TBIL is not recommended. Chloride [Moles/Vol] 108 mmol/L 98-107 [facility] Cholesterol [Mass/Vol] 151 mg/dL <200 [facility] Comment on above: <200 mg/dL Desirable 200-240 mg/dL Borderline >240 mg/dL High Risk Eosinophils/100 WBC (Bld) 3.8 % 0-5 [facility] Glucose [Mass/Vol] 120 mg/dL 74-106 [facility] Comment on above: Fasting Glucose resu lt from 100 to 125 mg/dL suggests IMPAIRED HOMEOSTASIS per A.D.A. criteria. Neutrophils (Bld) [#/Vol] 3.1 10*3/uL 2.0-7.7 [facility] Neutrophils/100 WBC (Bld) 58.6 % 47-70 [facility] Potassium [Moles/Vol] 3.9 mmol/L 3.5-5.1 [facility] Protein [Mass/Vol] 7.7 g/dL 6.4-8.2 [facility] Sodium [Moles/Vol] 140 mmol/L 136-145 [facility] Triglyceride [Mass/Vol] 210 mg/dL <199 [facility] Comment on above: The drugs N-Acetylcy steine and Metamizole may falsely depress this assay.Serum Triglycerides Reference Interval Normal <150 mg/dL Borderline high 150 - 199 mg/dL High 200 - 499 mg/dL Very High > or = 500 mg/dL WBC (Bld) [#/Vol] 5.2 10*3/uL 4.4-11.0 [facility] Blood erythrocytes count (nu mber/volume)Ordered By: Constantine Diaz on 02-18-2023 RBC (Bld) [#/Vol] 5.58 10*6/uL 4.6-6.2 [facility] Blood hemoglobin measurement (mass/volume)Ordered By: Constantine Diaz on 02-18-2023 Hemoglobin (Bld) [Mass/Vol] 16.7 g/dL 13.0-16.5 [facility] Blood lymphocytes/100 leukoc ytesOrdered By: Constantine Diaz on 02-18-2023 Lymphocytes/100 WBC (Bld) 28.7 % 19-41 [facility] Blood monocytes/100 leukocyt esOrdered By: Constantine Diaz on 02-18-2023 Monocytes/100 WBC (Bld) 7.7 % 0-10 [facility] Blood platelet mean volumeOr dered By: Constantine Diaz on 02-18-2023 Platelet mean volume (Bld) [Entitic vol] 10.4 fL 6.2-12.0 [facility] Determination of erythrocyte mean corpuscular volume (MCV)Ordered By: Constatnine Diaz on 02-18-2023 MCV (RBC) [Entitic vol] 91.9 fL 80-94 [facility] Hematocrit Auto (Bld) [Volum e fraction]Ordered By: Constantine Diaz on 02-18-2023 Hematocrit (Bld) [Volume fraction] 51.3 % 40-54 [facility] Laboratory - Chemistry and C hemistry - challengeOrdered By: Constantine Diaz on 02-18-2023 ALP [Catalytic activity/Vol] 68 U/L 45-117 [facility] ALT [Catalytic activity/Vol] 35 U/L 16-61 [facility] CO2 [Moles/Vol] 27.0 mmol/L 21.0-32.0 [facility] Globulin (S) [Mass/Vol] 4.0 g/dL 2.2-4.2 [facility] Urea nitrogen/Creatinine [Mass ratio] 16.9 mg/mg 10-20 [facility] Laboratory - Hematology and Cell countsOrdered By: Constantine Diaz on 02-18-2023 Erythrocyte distribution width (RBC) [Entitic vol] 40.0 fL 35.1-43.9 [facility] Erythrocyte distribution width (RBC) [Ratio] 11.9 % 11.6-14.6 [facility] Immature granulocytes/100 WBC (Bld) 0.200 % 0.0-0.9 [facility] Comment on above: IG% - Immature Granu locytes (promyelocytes, myelocytes and metamyelocytes) > 1% indicates that a LEFT SHIFT is Present. MCH (RBC) [Entitic mass] 29.9 pg 27.0-32.0 [facility] Nucleated RBC/100 WBC (Bld) [Ratio] 0 % 0-5 [facility] MCHC Auto (RBC) [Mass/Vol]Or dered By: Constantine Diaz on 02-18-2023 MCHC (RBC) [Mass/Vol] 32.6 g/dL 32-36 [facility] No Panel InformationOrdered By: Constantine Diaz on 02-18-2023 Estimated GFR (MDRD) Amer 121 mL/min >60 [facility] Comment on above: GFR Calc Estimated GFR (MDRD) Non-Af Amer 100 mL/min >60 [facility] Comment on above: Non- GFR Calc Platelets bldOrdered By: Jewel Diaz on 02-18-2023 Platelets (Bld) [#/Vol] 216 10*3/uL 150-450 [facility] Serum or plasma albumin maged urement (mass/volume)Ordered By: Constantine Diaz on 02-18-2023 Albumin [Mass/Vol] 3.7 g/dL 3.2-5.0 [facility] Serum or plasma albumin/glob ulin mass ratioOrdered By: Constantine Diaz on 02-18-2023 Albumin/Globulin [Mass ratio] 0.9 {ratio} 0.9-2.4 [facility] Serum or plasma calcium maged urement (mass/volume)Ordered By: Constantine Diaz on 02-18-2023 Calcium [Mass/Vol] 8.8 mg/dL 8.5-10.1 [facility] Serum or plasma cholesterol in HDL measurement (mass/volume)Ordered By: Constantine Diaz on 02-18-2023 Cholesterol in HDL [Mass/Vol] 45 mg/dL >40 [facility] Comment on above: The drugs N-Acetylcy steine and Metamizole may falsely depress this assay. Reference Range HDL <40 mg/dL Low HDL Cholesterol HDL >or= 60 mg/dL High HDL Cholesterol Serum or plasma cholesterol in VLDL measurement (mass/volume)Ordered By: Constantine Diaz on 02-18-2023 Cholesterol in VLDL [Mass/Vol] 42 mg/dL 5-40 [facility] Serum or plasma creatinine m easurement (mass/volume)Ordered By: Constantine Diaz on 02-18-2023 Creatinine [Mass/Vol] 0.83 mg/dL 0.70-1.30 [facility] Comment on above: The validity of the calculated GFR & GFRAA in patients over 70 years has not been determined. Clinical correlation is essential. Serum or plasma low density lipoprotein (LDL) cholesterol measurement (mass/volume)Ordered By: Constatnine Diaz on 02-18-2023 Cholesterol in LDL [Mass/Vol] 64 mg/dL 0-130 [facility] Serum or plasma urea nitroge n measurement (mass/volume)Ordered By: Constantine Diaz on 02-18-2023 Urea nitrogen [Mass/Vol] 14 mg/dL 7-18 [facility] Thin prep Papanicolaou smear with manual screeningOrdered By: Constantine Diaz on 02-18-2023 Thin prep Papanicolaou smear with manual screening 14 U/L 15-37 [facility] Thin prep Papanicolaou smear with manual screening 5 5-15 [facility] Whole blood hemoglobin A1c/t otal hemoglobin ratio (mass fraction)Ordered By: Constantine Diaz on 02-18-2023 HbA1c (Bld) [Mass fraction] 9.9 % 3.8-5.6 [facility] Comment on above: Normal < 5.7 % Predi abetic 5.7 - 6.4 % Diabetic >or= 6.5 % Please note range changes. Absolute lymphocyte countOrd ered By: Constantine Diaz on 11-27-2022 Lymphocytes Auto (Unsp spec) [#/Vol] 1.65 10*3/uL 0.83-4.51 [facility] Basophil percentageOrdered B y: Constantine Diaz on 11-27-2022 Basophils/100 WBC (Bld) 1.2 % 0-1 [facility] Bilirubin [Mass/Vol] 0.60 mg/dL 0.20-1.00 [facility] Comment on above: For patients on eltr ombopag therapy, use of Dimension [place] TBIL is not recommended. Chloride [Moles/Vol] 106 mmol/L 98-107 [facility] Cholesterol [Mass/Vol] 149 mg/dL <200 [facility] Comment on above: <200 mg/dL Desirable 200-240 mg/dL Borderline >240 mg/dL High Risk Eosinophils/100 WBC (Bld) 3.6 % 0-5 [facility] Glucose [Mass/Vol] 246 mg/dL 74-106 [facility] Comment on above: Glucose result great er than or equal to 200 mg/dLsuggests DIABETES MELLITUS per A.D.A. criteria. Neutrophils (Bld) [#/Vol] 2.7 10*3/uL 2.0-7.7 [facility] Neutrophils/100 WBC (Bld) 54.0 % 47-70 [facility] Potassium [Moles/Vol] 4.1 mmol/L 3.5-5.1 [facility] Protein [Mass/Vol] 7.5 g/dL 6.4-8.2 [facility] Sodium [Moles/Vol] 138 mmol/L 136-145 [facility] Triglyceride [Mass/Vol] 72 mg/dL <199 [facility] Comment on above: The drugs N-Acetylcy steine and Metamizole may falsely depress this assay.Serum Triglycerides Reference Interval Normal <150 mg/dL Borderline high 150 - 199 mg/dL High 200 - 499 mg/dL Very High > or = 500 mg/dL WBC (Bld) [#/Vol] 5.0 10*3/uL 4.4-11.0 [facility] Blood erythrocytes count (nu mber/volume)Ordered By: Constantine Diaz on 11-27-2022 RBC (Bld) [#/Vol] 5.30 10*6/uL 4.6-6.2 [facility] Blood hemoglobin measurement (mass/volume)Ordered By: Constantine Diaz on 11-27-2022 Hemoglobin (Bld) [Mass/Vol] 16.1 g/dL 13.0-16.5 [facility] Blood lymphocytes/100 leukoc ytesOrdered By: Cnostantine Diaz on 11-27-2022 Lymphocytes/100 WBC (Bld) 33.3 % 19-41 [facility] Blood monocytes/100 leukocyt esOrdered By: Constantine Diaz on 11-27-2022 Monocytes/100 WBC (Bld) 7.5 % 0-10 [facility] Blood platelet mean volumeOr dered By: Constantine Diaz on 11-27-2022 Platelet mean volume (Bld) [Entitic vol] 10.9 fL 6.2-12.0 [facility] Determination of erythrocyte mean corpuscular volume (MCV)Ordered By: Constantine Diaz on 11-27-2022 MCV (RBC) [Entitic vol] 90.9 fL 80-94 [facility] Hematocrit Auto (Bld) [Volum e fraction]Ordered By: Constantine Diaz on 11-27-2022 Hematocrit (Bld) [Volume fraction] 48.2 % 40-54 [facility] Laboratory - Chemistry and C hemistry - challengeOrdered By: Constantine Diaz on 11-27-2022 ALP [Catalytic activity/Vol] 78 U/L 45-117 [facility] ALT [Catalytic activity/Vol] 28 U/L 16-61 [facility] CO2 [Moles/Vol] 27.0 mmol/L 21.0-32.0 [facility] Free T4 [Mass/Vol] 0.81 ng/dL 0.76-1.46 [facility] Globulin (S) [Mass/Vol] 3.7 g/dL 2.2-4.2 [facility] Urea nitrogen/Creatinine [Mass ratio] 17.9 mg/mg 10-20 [facility] Laboratory - Hematology and Cell countsOrdered By: Constantine Diaz on 11-27-2022 Erythrocyte distribution width (RBC) [Entitic vol] 38.8 fL 35.1-43.9 [facility] Erythrocyte distribution width (RBC) [Ratio] 11.6 % 11.6-14.6 [facility] Immature granulocytes/100 WBC (Bld) 0.400 % 0.0-0.9 [facility] Comment on above: IG% - Immature Granu locytes (promyelocytes, myelocytes and metamyelocytes) > 1% indicates that a LEFT SHIFT is Present. MCH (RBC) [Entitic mass] 30.4 pg 27.0-32.0 [facility] Nucleated RBC/100 WBC (Bld) [Ratio] 0 % 0-5 [facility] MCHC Auto (RBC) [Mass/Vol]Or dered By: Constantine Diaz on 11-27-2022 MCHC (RBC) [Mass/Vol] 33.4 g/dL 32-36 [facility] No Panel InformationOrdered By: Constantine Diaz on 11-27-2022 Estimated GFR (MDRD) Amer 92 mL/min >60 [facility] Comment on above: GFR Calc Estimated GFR (MDRD) Non-Af Amer 76 mL/min >60 [facility] Comment on above: Non- GFR Calc Thyroid Stimulating Hormone (TSH) 45.30 uIU/mL 0.358-3.74 [facility] Platelets bldOrdered By: Jewel Diaz on 11-27-2022 Platelets (Bld) [#/Vol] 195 10*3/uL 150-450 [facility] Serum or plasma albumin maged urement (mass/volume)Ordered By: Constantine Diaz on 11-27-2022 Albumin [Mass/Vol] 3.8 g/dL 3.2-5.0 [facility] Serum or plasma albumin/glob ulin mass ratioOrdered By: Constantine Diaz on 11-27-2022 Albumin/Globulin [Mass ratio] 1.0 {ratio} 0.9-2.4 [facility] Serum or plasma calcium maged urement (mass/volume)Ordered By: Constantine Diaz on 11-27-2022 Calcium [Mass/Vol] 8.8 mg/dL 8.5-10.1 [facility] Serum or plasma cholesterol in HDL measurement (mass/volume)Ordered By: Constantine Diaz on 11-27-2022 Cholesterol in HDL [Mass/Vol] 58 mg/dL >40 [facility] Comment on above: The drugs N-Acetylcy steine and Metamizole may falsely depress this assay. Reference Range HDL <40 mg/dL Low HDL Cholesterol HDL >or= 60 mg/dL High HDL Cholesterol Serum or plasma cholesterol in VLDL measurement (mass/volume)Ordered By: Constantine Diaz on 11-27-2022 Cholesterol in VLDL [Mass/Vol] 14 mg/dL 5-40 [facility] Serum or plasma creatinine m easurement (mass/volume)Ordered By: Constantine Diaz on 11-27-2022 Creatinine [Mass/Vol] 1.06 mg/dL 0.70-1.30 [facility] Comment on above: The validity of the calculated GFR & GFRAA in patients over 70 years has not been determined. Clinical correlation is essential. Serum or plasma low density lipoprotein (LDL) cholesterol measurement (mass/volume)Ordered By: Constantine Diaz on 11-27-2022 Cholesterol in LDL [Mass/Vol] 77 mg/dL 0-130 [facility] Serum or plasma urea nitroge n measurement (mass/volume)Ordered By: Constantine Diaz on 11-27-2022 Urea nitrogen [Mass/Vol] 19 mg/dL 7-18 [facility] Thin prep Papanicolaou smear with manual screeningOrdered By: Constantine Diaz on 11-27-2022 Thin prep Papanicolaou smear with manual screening 16 U/L 15-37 [facility] Thin prep Papanicolaou smear with manual screening 5 5-15 [facility] Whole blood hemoglobin A1c/t otal hemoglobin ratio (mass fraction)Ordered By: Constantine Diaz on 11-27-2022 HbA1c (Bld) [Mass fraction] 12.1 % 3.8-5.6 [facility] Comment on above: Normal < 5.7 % Predi abetic 5.7 - 6.4 % Diabetic >or= 6.5 % Please note range changes. Absolute lymphocyte counton 09-27-2021 Lymphocytes Auto (Unsp spec) [#/Vol] 1.30 10*3/uL 0.83-4.51 [facility] Work Phone: Basophil percentageon 2021 Basophils/100 WBC (Bld) 1.0 % 0-1 [facility] Work Phone: Bilirubin [Mass/Vol] 0.40 mg/dL 0.20-1.00 [facility] Work Phone: Comment on above: For patients on eltr ombopag therapy, use of Dimension [place] TBIL is not recommended. Chloride [Moles/Vol] 105 mmol/L 98-107 [facility] Work Phone: [phone] Cholesterol [Mass/Vol] 176 mg/dL <200 [facility] Work Phone: Comment on above: <200 mg/dL Desirable 200-240 mg/dL Borderline >240 mg/dL High Risk Eosinophils/100 WBC (Bld) 3.5 % 0-5 [facility] Work Phone: [phone] Glucose [Mass/Vol] 434 mg/dL 74-106 [facility] Work Phone: Comment on above: Glucose result great er than or equal to 200 mg/dLsuggests DIABETES MELLITUS per A.D.A. criteria. Neutrophils (Bld) [#/Vol] 2.3 10*3/uL 2.0-7.7 [facility] Work Phone: Neutrophils/100 WBC (Bld) 56.1 % 47-70 [facility] Work Phone: [phone] Potassium [Moles/Vol] 4.0 mmol/L 3.5-5.1 [facility] Work Phone: [phone] Protein [Mass/Vol] 7.4 g/dL 6.4-8.2 [facility] Work Phone: [phone] Sodium [Moles/Vol] 137 mmol/L 136-145 [facility] Work Phone: [phone] Triglyceride [Mass/Vol] 112 mg/dL <199 [facility] Work Phone: Comment on above: The drugs N-Acetylcy steine and Metamizole may falsely depress this assay.Serum Triglycerides Reference Interval Normal <150 mg/dL Borderline high 150 - 199 mg/dL High 200 - 499 mg/dL Very High > or = 500 mg/dL WBC (Bld) [#/Vol] 4.0 10*3/uL 4.4-11.0 [facility] Work Phone: [phone] Blood erythrocytes count (nu mber/volume)on 09-27-2021 RBC (Bld) [#/Vol] 5.43 10*6/uL 4.6-6.2 [facility] Work Phone: [phone] Blood hemoglobin measurement (mass/volume)on 09-27-2021 Hemoglobin (Bld) [Mass/Vol] 16.4 g/dL 13.0-16.5 [facility] Work Phone: Blood lymphocytes/100 leukoc yteson 09-27-2021 Lymphocytes/100 WBC (Bld) 32.2 % 19-41 [facility] Work Phone: Blood monocytes/100 leukocyt eson 09-27-2021 Monocytes/100 WBC (Bld) 6.7 % 0-10 [facility] Work Phone: Blood platelet mean volumeon 09-27-2021 Platelet mean volume (Bld) [Entitic vol] 10.7 fL 6.2-12.0 [facility] Work Phone: [phone] Determination of erythrocyte mean corpuscular volume (MCV)on 09-27-2021 MCV (RBC) [Entitic vol] 90.2 fL 80-94 [facility] Work Phone: [phone] Hematocrit Auto (Bld) [Volum e fraction]on 09-27-2021 Hematocrit (Bld) [Volume fraction] 49.0 % 40-54 [facility] Work Phone: [phone] Laboratory - Chemistry and C hemistry - challengeon 09-27-2021 ALP [Catalytic activity/Vol] 107 U/L 45-117 [facility] Work Phone: ALT [Catalytic activity/Vol] 38 U/L 16-61 [facility] Work Phone: [phone] CO2 [Moles/Vol] 27.0 mmol/L 21.0-32.0 [facility] Work Phone: Free T4 [Mass/Vol] 0.74 ng/dL 0.76-1.46 [facility] Work Phone: Globulin (S) [Mass/Vol] 3.7 g/dL 2.2-4.2 [facility] Work Phone: Urea nitrogen/Creatinine [Mass ratio] 13.1 mg/mg 10-20 [facility] Work Phone: Laboratory - Hematology and Cell countson 09-27-2021 Erythrocyte distribution width (RBC) [Entitic vol] 38.7 fL 35.1-43.9 [facility] Work Phone: Erythrocyte distribution width (RBC) [Ratio] 11.8 % 11.6-14.6 [facility] Work Phone: Immature granulocytes/100 WBC (Bld) 0.500 % 0.0-0.9 [facility] Work Phone: Comment on above: IG% - Immature Granu locytes (promyelocytes, myelocytes and metamyelocytes) > 1% indicates that a LEFT SHIFT is Present. MCH (RBC) [Entitic mass] 30.2 pg 27.0-32.0 [facility] Work Phone: Nucleated RBC/100 WBC (Bld) [Ratio] 0 % 0-5 [facility] Work Phone: MCHC Auto (RBC) [Mass/Vol]on 09-27-2021 MCHC (RBC) [Mass/Vol] 33.5 g/dL 32-36 [facility] Work Phone: No Panel Informationon 09-27 Estimated GFR (MDRD) Amer 78 mL/min >60 [facility] Work Phone: Comment on above: GFR Calc Estimated GFR (MDRD) Non-Af Amer 65 mL/min >60 [facility] Work Phone: Comment on above: Non- GFR Calc Prostate Specific Antigen Screen 2.53 ng/mL 0.00-4.00 [facility] Work Phone: Comment on above: This test was perfor med using the TPSA assay method for [employer] chemistry system. Values obtained with differentassay methods cannot be used interchangably.When changing PSA assays in the course of monitoring apatient, additional sequential testing should be carriedout to confirm baseline values. Thyroglobulin Antibody 1251.7 IU/mL 0.0-0.9 [facility] Work Phone: Comment on above: Thyroglobulin Antibo dy measured by [employer] Thyroid Stimulating Hormone (TSH) 49.10 uIU/mL 0.358-3.74 [facility] Work Phone: Platelets bldon 09-27-2021 Platelets (Bld) [#/Vol] 195 10*3/uL 150-450 [facility] Work Phone: Serum or plasma albumin maged urement (mass/volume)on 09-27-2021 Albumin [Mass/Vol] 3.7 g/dL 3.2-5.0 [facility] Work Phone: Serum or plasma albumin/glob ulin mass ratioon 09-27-2021 Albumin/Globulin [Mass ratio] 1.0 {ratio} 0.9-2.4 [facility] Work Phone: Serum or plasma calcium maged urement (mass/volume)on 09-27-2021 Calcium [Mass/Vol] 9.0 mg/dL 8.5-10.1 [facility] Work Phone: Serum or plasma cholesterol in HDL measurement (mass/volume)on 09-27-2021 Cholesterol in HDL [Mass/Vol] 55 mg/dL >40 [facility] Work Phone: Comment on above: The drugs N-Acetylcy steine and Metamizole may falsely depress this assay. Reference Range HDL <40 mg/dL Low HDL Cholesterol HDL >or= 60 mg/dL High HDL Cholesterol Serum or plasma cholesterol in VLDL measurement (mass/volume)on 09-27-2021 Cholesterol in VLDL [Mass/Vol] 22 mg/dL 5-40 [facility] Work Phone: Serum or plasma creatinine m easurement (mass/volume)on 09-27-2021 Creatinine [Mass/Vol] 1.22 mg/dL 0.70-1.30 [facility] Work Phone: Comment on above: The validity of the calculated GFR & GFRAA in patients over 70 years has not been determined. Clinical correlation is essential. Serum or plasma low density lipoprotein (LDL) cholesterol measurement (mass/volume)on 09-27-2021 Cholesterol in LDL [Mass/Vol] 99 mg/dL 0-130 [facility] Work Phone: Serum or plasma thyroperoxid ase antibody assay (units/volume)on 09-27-2021 TPO Ab Qn 25 [IU]/mL 0-34 [facility] Work Phone: Comment on above: Performed at: [employer] [facility] [employer] [address] [id number] Director: Tana Boston MD, Phone: [phone] at: [facility] [address] [id number] Director: Deniz Paz PhD, Phone: [phone] at: [facility] [employer] [address] [id number] Director: Vignesh Bazzi MD, Phone: [phone] Serum or plasma urea nitroge n measurement (mass/volume)on 09-27-2021 Urea nitrogen [Mass/Vol] 16 mg/dL 7-18 [facility] Work Phone: Thin prep Papanicolaou smear with manual screeningon 09-27-2021 Thin prep Papanicolaou smear with manual screening 18 U/L 15-37 [facility] Work Phone: Thin prep Papanicolaou smear with manual screening 5 5-15 [facility] Work Phone: Thyroglobulin measurement by radioimmunoassay (ZHANNA)on 09-27-2021 Thyroglobulin Ab ZHANNA Qn (S) 34 ng/mL . [facility] Work Phone: Comment on above: This test was develo ped and its performance characteristicsdetermined by [employer]. It has not been cleared or approvedby the Food and Drug Administration.Reference Range:Pubertal Childrenand Adults: <40According to the National Academy of Clinical Biochemistry,the reference interval for Thyroglobulin (TG) should berelated to euthyroid patients and not for patients whounderwent thyroidectomy. TG reference intervals for thesepatients depend on the residual mass of the thyroid tissueleft after surgery. Establishing a post-operative baselineis recommended. The assay quantitation limit is 2.0 ng/mL. Thyroid stimulating immunogl obulins detectionon 09-27-2021 Thyroid stimulating immunoglobulins Ql (S) <0.10 IU/L 0.00-0.55 [facility] Work Phone: Whole blood hemoglobin A1c/t otal hemoglobin ratio (mass fraction)on 09-27-2021 HbA1c (Bld) [Mass fraction] 12.2 % 3.8-5.6 [facility] Work Phone: Comment on above: Normal < 5.7 % Predi abetic 5.7 - 6.4 % Diabetic >or= 6.5 % Please note range changes. Vital Signs Date Time Vital Sign Value Performing Clinician Faci cristian 11-16-2021 07:49-0400 Body temperature 98.2 [degF] Dr. Constantine Diaz Work Phone: [facility] Work Phone: 11-16-2021 07:49-0400 Diastolic blood pressure 68 mm[Hg] Dr. Constantine Diaz Work Phone: [facility] Work Phone: 11-16-2021 07:49-0400 Heart rate 74 /min Dr. Constantine Diaz Work Phone: [facility] Work Phone: 11-16-2021 07:49-0400 Respiratory rate 14 /min Dr. Constantine Diaz Work Phone: [facility] Work Phone: 11-16-2021 07:49-0400 SaO2% (BldA) [Mass fraction] 98 % Dr. Constantine Diaz Work Phone: [facility] Work Phone: 11-16-2021 07:49-0400 Systolic blood pressure 107 mm[Hg] Dr. Constantine Diaz Work Phone: [facility] Work Phone: 11-16-2021 06:21-0400 Body height 180.[address] Constantine Diaz Work Phone: [facility] Work Phone: 11-16-2021 06:21-0400 Body mass index (BMI) [Ratio] 22.6 kg/m2 Dr. Constantine Diaz Work Phone: [facility] Work Phone: 11-16-2021 06:21-0400 Body weight 73.[address] Constantine Diaz Work Phone: [facility] Work Phone: 09-25-2021 16:28-0400 Body mass index (BMI) [Ratio] 23 kg/m2 Dr. Constantine Diaz Work Phone: [facility] Work Phone: 09-25-2021 16:28-0400 Body weight 74.[address] Cnostantine Diaz Work Phone: [facility] Work Phone: Encounters Encounter Date Encounter Type Care Provider Facility Start: 03-30-2024 End: 03-30-2024 ambulatory Constantine Diaz Facility:[facility] Start: 12-16-2023 End: 12-16-2023 ambulatory Constantine Diaz Facility:[facility] Start: 08-19-2023 End: 08-19-2023 ambulatory [facility] Work Phone: Start: 08-19-2023 End: 08-19-2023 Patient encounter procedure [facility] Start: 08-19-2023 End: 08-19-2023 ambulatory Constantine Diaz Facility:[facility] Start: 05-20-2023 End: 05-20-2023 ambulatory [facility] Work Phone: Start: 05-20-2023 End: 05-20-2023 Patient encounter procedure [facility] Work Phone: Start: 05-20-2023 End: 05-20-2023 ambulatory Constantine Diaz Facility:[facility] Start: 02-22-2023 End: 02-22-2023 ambulatory [facility] Work Phone: Start: 02-22-2023 End: 02-22-2023 Patient encounter procedure [facility] Work Phone: Start: 02-18-2023 End: 02-18-2023 ambulatory [facility] Work Phone: Start: 02-18-2023 End: 02-18-2023 Patient encounter procedure [facility] Start: 11-27-2022 End: 11-27-2022 ambulatory [facility] Work Phone: Start: 11-27-2022 End: 11-27-2022 Patient encounter procedure [facility] Start: 11-16-2021 Non-patient / Non-visit Dr. Cecy Diaz Work Phone: [facility] Start: 11-16-2021 End: 11-16-2021 Admission to same day surgery center Dr. Constantine Diaz Work Phone: [facility] Start: 09-27-2021 End: 09-27-[address] Constantine Diaz Work Phone: [facility] Start: 09-25-2021 Non-patient / Non-visit Dr. Cecy Diaz Work Phone: [facility] Start: 09-01-2021 End: 09-01-2021 Patient encounter procedure [facility], [facility] Procedures Date Procedure Procedure Detail Performing Clinician Start: 02-22-2023 US scan of thyroid Start: 11-16-[address] Constantine marinelli Work Phone: Start: 09-01-2021 US scan of thyroid Plan of Treatment Date Care Activity Detail Author Start: 11-16-2021 Patient discharge [facility] Work Phone: Colonoscopy [facility] Work Phone: Patient referral [facility] Work Phone: Payers Date Payer Category Payer Self-pay [id number] 2021 Unknown [id number] Unknown [id number] Unknown [id number] Unknown [id number] Unknown [id number] Social History Date Type Detail Facility Tobacco smoking stat NHIS Unknown if ever smoked [facility] Work Phone: Start: 1960 Sex Assigned At Male [facility] Start: 11-14-2021 End: 11-14-2021 Tobacco smoking status NHIS Unknown if ever smoked [facility] Goals Date Patient Goal Desired Activity /State Mental Status Date Assessment Result Facility 11-16-2021 Cognitive function Voice/Name [facility] Work Phone: Evaluation note Note Date & Type Note Facility Evaluation note No assessment information availa ble [facility] Work Phone: Evaluation note Note Date & Type Note Facility Evaluation note Diagnosis Onset Date Encounter for screening for malignant neoplasm of colon acute [facility] Work Phone: Chief Complaint and Reason for Visit Chief Complaint thyromegaly Chief Complaint thyromegaly Amb Documentation Reason for Visit Encounter for screen ing for malignant neoplasm of colon Chief Complaint NODULE 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 Family History No Family History Records Found Relationship Condition Age at Onset Recorded Date/T elie father Cardiac disease Unknown Diabetes mellitus Unknown Arthritis Unknown grandfather Cardiac disease Unknown Hypertension Unknown Parkinson's disease Unknown mother Diabetes mellitus Unknown Kidney disorder Unknown grandmother Cardiac disease Unknown sister Ulcerative colitis Unknown Advance Directives No Advanced Directives Records Found Advance Directive Response Recorded Date/ Time Living Will No November 14, 2021 12:36pm Power of School Operations Manager No November 14 12:36pm Advance Directive Response Recorded Date/ Time Living Will No November 14, 2021 11:36am Power of School Operations Manager No November 14 11:36am Summary Purpose Additional Source Comments Goals (unrecognized section and content) Goals may be documented in a n alternate sectionGoals may be documented in an alternate sectionGoals may be documented in an alternate sectionGoals may be documented in an alternate sectionGoals may be documented in an alternate sectionGoals may be documented in an alternate section Care Teams (unrecognized sec tion and content) Team Status: Active Member Role Status Dates Dr. Constantine Diaz MD Primary Care Provider Active Team Status: Inactive Member Role Status Dates Dr. Constantine Diaz MD Primary Care Pr ovider, Attending Provider, Referring Provider Active Team Status: Inactive Member Role Status Dates Dr. Constantine Diaz MD Primary Care Provider, Attend ing Provider Active Team Status: Active Member Role Status Dates Dr. Constantine Diaz MD Primary Care Pr ovider, Attending Provider, Referring Provider Active (unrecognized sect ion and content) No Status Records Found INFORMATION SOURCE (unrecogn ized section and content) DATE CREATED AUTHOR 05/06/2024 [facility] FOR RECORDS PERTAINING TO PATIENTS WHO ARE OR HAVE BEEN ENROLLED IN A CHEMICAL DEPENDENCY/SUBSTANCEABUSE PROGRAM, SOME INFORMATION MAY BE OMITTED. This clinical summary was aggregated from multiple sources. Caution should be exercised in using it in the provision of clinical care. This summary normalizes information from multiple sources, and as a consequence, information in this document may materially change the coding, format and clinical context of patient data. In addition, data may be omitted in some cases. CLINICAL DECISIONS SHOULD BE BASED ON THE PRIMARY CLINICAL RECORDS. [facility] [employer] [facility]. provides no warranty or guarantee of the accuracy or completeness of information in this document.
== END | disposition home or self-care (01) ==
LOC: MFPLAB 15:22
PROVIDERS: PCP Family Medicine; Referring Provider Family Medicine; Visit Provider Family Medicine
DX: E11.59 Type 2 diabetes mellitus with other circulatory complications (principal); E06.3 Autoimmune thyroiditis; Z12.5 Encounter for screening for malignant neoplasm of prostate
CPT/HCPCS: 36415; 80053; 80061; 83036; 84153; 84439; 84443; 85025; G0103

== ENCOUNTER → 2025-02-01 | Outpatient (CLI) | payer BC, SELFPAY ==
[2025-02-01 16:47] LABS: Mucous, Urine 0 SEEN /hpf (<or=2+); Red Blood Cells-Urine 0 SEEN /hpf (0-5); Squamous Epithelial Cells - UA 0 SEEN /hpf (0-5)
[2025-02-01 17:41] LABS: Color, Urine Yellow (Yellow); Glucose, Dipstick 1000 mg/dl (Normal); Ketone-Dipstick 5 mg/dl (Negative); Leukocyte Esterase-Dipstick Negative /ul (Negative); Nitrite-Dipstick Negative (Negative); Occult Blood-Urine Negative /ul (Negative); Protein-Dipstick Negative (Negative); Specific Gravity, Urine 1.020 (1.002-1.030); Urine Bilirubin Dipstick Negative (Negative)
[2025-02-01 17:49] LABS: Hematocrit 49.4 % (40-54); Hemoglobin 16.1 g/dL (13.0-16.5); Immature Granulocytes Count 0.020 X10^3/uL (0.0-0.0); Mean Corp Hgb Conc 32.6 g/dL (32-36); Mean Corpuscular Volume 91.5 fL (80-94); Mean Platelet Vol. 10.2 fl (6.2-12.0); NRBC Flagged by Analyzer 0 % (0-5); Platelet Count 198 K/mm3 (150-450); RBC Distribution Width CV 12.0 % (11.6-14.6); RBC Distribution Width SD 40.1 fl (35.1-43.9); Red Blood Count 5.40 M/mm3 (4.6-6.2); White Blood Count 5.6 K/mm3 (4.4-11.0)
[2025-02-01 18:07] LABS: Creatinine, Urine (random) 116.00 mg/dL (39.00-259.00); Microalbumin,Random Urine < 12.0 mg/L (<20 mg/L)
[2025-02-01 18:27] LABS: AST(SGOT) 20 U/L (<=37); Alanine Aminotransfer ALT/SGPT 18 U/L (<=46); Albumin, Serum 4.4 g/dL (3.4-4.8); Alkaline Phosphatase 64 U/L (40-129); Anion Gap 14 (5-15); BUN 17 mg/dL (4-19); BUN/Creat Ratio 16.9 RATIO (10-20); Calcium,Total 9.4 mg/dL (7.6-11.0); Carbon Dioxide 22.9 mmol/L (21.0-32.0); Chloride 104 mmol/L (98-108); Cholesterol 156 mg/dL (<=200); Globulin 3.2 g/dL (2.2-4.2); Glucose 126 mg/dL (70-99); Low Density Lipoprotein Calc. 86 mg/dL; Potassium 4.4 mmol/L (3.3-5.1); Triglycerides 112 mg/dL; Very Low Density Lipoprotein 22 mg/dL (5-40); cholesterol:hdl ratio screen 3.26
== END | disposition home or self-care (01) ==
LOC: MFPLAB 16:44
PROVIDERS: PCP Family Medicine; Visit Provider Family Medicine
DX: E11.8 Type 2 diabetes mellitus with unspecified complications (principal); E06.3 Autoimmune thyroiditis
CPT/HCPCS: 80053; 80061; 81001; 82043; 82570; 83036; 84439; 84443; 85025